=== PATIENT | female | born 1935 | race Caucasian/White ===

== ENCOUNTER 2017-02-06 01:03 | Inpatient (IN) ==
--- NOTE | 2017-02-06 01:51 | Emergency Department Note ---
Arrival - Arrival Chief Complaint: Abdominal / Flank Pain Stated Complaint: Abd pain ED Nursing Triage Note: C/C Transfer from [facility] ER for abd pain Dx Gallstones Mode of Arrival: Stretcher Time Seen by Provider: 02/06/17 01:40 - History of Present Illness HPI Narrative: Patient had thorough workup at [facility] by Dr. Bond. She had multiple vague complaints of therapeutic bleeding complaints were headache, general demise, abdominal pain, and leg cramping all night long. The patient now has been transferred for further evaluation of findings on CT which were in addition to elevated transaminases and bilirubin suggesting choledocholithiasis. Allergies/Adverse Reactions: Allergies Allergy/AdvReac Type Severity Reaction Status Date / Time No Known Allergies Allergy Unverified 02/06/17 01:18 Review of System - Review of System 12 point system: reviewed and no additional remarkable complaints except as stated Medical,Surgical,& Family Hx - Medical History Cardio: History of: CHF, CAD, Hypertension Psychological: History of: Depression Neurology: History of: TIA Endocrine: History of: Diabetes Mellitus (IDDM), Dyslipidemia Renal: History of: Renal Failure Gastrointestinal: History of: GERD - Social History Smoking Status: Never smoker Frequency of Alcohol Use: None Type of Drug Use: None Exam Physical Examination: General: Patient is well-developed and well-nourished with no acute distress noted. She does not appear to have jaundice at this time. HEENT: The extraocular muscles are intact. Oropharynx is moist. There is no erythema or exudate. The tympanic membranes are shiny bilaterally. Neck: There is no adenopathy. Full range of motion is noted without pain. The trachea is midline. No JVD is present. Lungs: There is normal excursion of the chest with the lungs sounding clear bilaterally. No subcostal retractions are present. There is no point tenderness present. Heart: The heart has a regular rate and rhythm with no gallops or murmurs. Abdomen: The abdomen is nontender and nondistended with no rebound, guarding, or masses. Bowel sounds are normal. Back: The back demonstrates a normal appearance with no evidence of trauma. Genitourinary: Not examined. Extremities: The extremities demonstrate no clubbing, cyanosis, or edema. The visualized range of motion is normal. They appear atraumatic. Neuro: Cranial nerves II through XII are checked and intact. There is no focal motor or sensory deficit seen in the extremities. Skin: Skin is warm and dry with no evidence of rash. Vital Signs: Vital Signs Temperature 97.9 F 02/06/17 01:03 Pulse Rate 74 02/06/17 01:03 Respiratory Rate 20 02/06/17 01:03 Blood Pressure 138/49 02/06/17 01:03 O2 Sat by Pulse Oximetry 95 02/06/17 01:03 Course - Consultations Consultation #1: The hospitalist will evaluate and admit the patient. Time: 01:51 Disposition Clinical Impression: Elevated transaminase level, Bilirubinemia, Gallstones Case discussed with: patient, patient's family Disposition: Still a Patient Condition: Stable Time of Disposition: 01:51
[2017-02-06] MEDS ORDERED: GLUCAGON 1 MG VIAL IM PRN (02:48)
[2017-02-06] MEDS ORDERED: DEXTROSE 50% 25 GM/50 ML VIAL IV PRN (02:48)
--- NOTE | 2017-02-06 02:57 | Hospitalist History & Physical ---
Assessment and Plan (1) Dilated gallbladder Status: Acute Assessment and plan: We will do a HIDA scan to evaluate for possibility of bladder outlet obstruction versus dyskinesia. Patient has been consulted to gastroenterology for further evaluation and management. Current Visit: Yes (2) Elevated transaminase level Status: Acute Assessment and plan: This could be hepatocyte injury secondary to Tylenol which is been mentioned or even Toradol. She is also to be taking some nonsteroidal anti-inflammatory drugs that could do it. But in the face of dilated gallbladder choledocholithiasis has to be considered. She was symptomatic with nausea and vomiting and intolerance to food smells. Gastroenterology will be on the case Current Visit: Yes (3) Gallstones Status: Acute Assessment and plan: The gallbladder is dilated there is no sign of this by radiographs that there is inflammation of the gallbladder. She denies having had fevers though the daughter seemed to suggest that this was so. We will repeat his CBC this morning; if white count is elevated gallbladder information has to be considered. Surgical consult is withheld at this point. Current Visit: Yes (4) Diabetes mellitus type 2 with complications Status: Acute Assessment and plan: General control is unknown to me at this point. Patient does seem to have neuropathy therefore expect that that is control is been a problem in the past. She has been put on a controlled carbohydrate diet will put her on a sliding scale intermediates level check blood sugars q. before meals and at bedtime check hemoglobin A1c. Oral intake is been suspect of late therefore she was sent for hypoglycemia.Also check lipid panel Current Visit: Yes History of Present Illness Chief complaint: [facility] for cholelithiasis and dilated gallbladder History of present illness: Ms. Lopez is a 82 year old female who was sent to this hospital by [facility] because for history of nausea vomiting and not being able to eat for a few days. Acknowledges that smell of food was bothering her. But attention [employer] shop with a did a workup today with a CT scan shows a dilated gallbladder with some cholelithiasis. She also has significant transaminasemia with the SGOT greater than SGPT and the elevated alkaline phosphatase. Her bilirubin is only modestly elevated. She does not have any jaundice. She acknowledges taking a lot of Tylenol as of late because the physician who treats did not give her tramadol but she is known to have used tramadol for long time to. According to the daughter in the room she has been taking Tylenol arthritis in the morning and in the evening to what it time foot but the duration that she calls will be not the one that would say it could cause hepatitis. She may have been using some Tylenol products before that however. And that is for a long duration. Consent at this point the patient may have an obstructive process in the common bile duct and for this reason will be admitted to the hospital and will be consulted to gastroenterology. She looks to be not in any distress at the time of my assessment in the emergency room she does not even have tenderness in the right upper quadrant but she does have a rotund abdomen and a history of nausea vomiting with the finding by radiograph is concerning. Allergies Allergy/AdvReac Type Severity Reaction Status Date / Time No Known Allergies Allergy Unverified 02/06/17 01:18 Medical,Surgical,& Family Hx - Medical History Cardio: History of: CHF, CAD, Hypertension Psychological: History of: Depression Neurology: History of: TIA Endocrine: History of: Diabetes Mellitus (IDDM), Dyslipidemia Renal: History of: Renal Failure Gastrointestinal: History of: GERD - Social History Smoking Status: Never smoker Frequency of Alcohol Use: None Type of Drug Use: None - Constitutional Constitutional: Present: as per HPI - EENT Eyes: Present: as per HPI Nose, mouth and throat: Present: as per HPI - Respiratory Respiratory: Present: as per HPI - Gastrointestinal Gastrointestinal: Present: as per HPI, other (Patient has elevated liver enzymes rotund abdomen abdomen and she is has nausea and vomiting) - Genitourinary Genitourinary: Present: as per HPI - Musculoskeletal Musculoskeletal: Present: as per HPI - Neurological Neurological: Present: as per HPI - Psychiatric Psychiatric: Present: as per HPI - Endocrine Endocrine: Present: as per HPI, other (History of diabetes with the uncontrolled pain in the legs suspicious for diabetic neuropathy) - Hematologic/Lymphatic Hematologic/Lymphatic: Present: as per HPI Exam - Constitutional Vitals: Period Temp Pulse Resp BP Sys/Blood Pulse Ox Last 24 Hr 97.9 F-97.9 F 71-74 18-20 138-138/49-49 95 General appearance: over weight - Head Head exam: Present: normocephalic, atraumatic - Eye Eye exam: Present: EOMI, other (Anicteric sclera no conjunctival petechiae) Pupils: Present: UDAY - ENT ENT exam: Present: normal exam, normal oropharynx - Neck Neck exam: Present: other (Supple neck no adenopathy midline trachea) - Respiratory Respiratory exam: Present: clear to auscultation bilaterally, other (No rales no wheezing) - Cardiovascular Cardiovascular exam: Present: irregular rhythm, other (No murmurs or gallops) - GI/Abdominal GI/Abdominal exam: Present: normal bowel sounds, soft, other (Nontender no guarding negative Adams sign) - Extremities Exam Extremities exam: Present: full ROM - Back Exam Back exam: Present: normal inspection - Neurological Exam Neurological exam: Present: alert, oriented X3, CN II-XII intact - Psychiatric Psychiatric exam: Present: normal affect, normal mood - Skin Skin exam: Present: normal color, warm, dry Results - Labs Lab Results: I have reviewed the past 24 hour labs (Labs were done at [facility] and will be incorporated part of the chart. Plan to repeat chemistry this morning)
[2017-02-06] MEDS: HEPARIN 5,000 UNIT/1 ML VIAL SUBCUT SCH ×2 (04:24→22:01)
[2017-02-06 05:01] LABS: Basophils % 0.3 % (0.0-0.8); Eosinophils % 0.3 % (0.00-10.9); Hematocrit 35.3 VOL% (35.7-47.0); Immature Granulocytes % 0.7 %; Immature Granulocytes Absolute 0.08 #; Lymphocytes # 0.8 10*3/uL (1.4-4.0); Lymphocytes % 6.9 % (21.3-54.2); Mean Corpuscular Hemoglobin 31 PG (27-34); Mean Corpuscular Volume 89.6 FL (87-102); Mean Platelet Volume 9.9 FL (9.6-12.0); Monocytes # 0.8 10*3/uL (0.11-0.8); Monocytes % 7.3 % (1.7-12.7); Neutrophils # 9.7 10*3/uL (1.4-7.4); Neutrophils % 84.5 % (38.7-73.9); Platelet Count 314 T/CUMM (130-400); Red Blood Count 3.94 MC/CUMM (3.8-5.5); White Blood Count 11.5 T/CUMM (4-12)
[2017-02-06 05:28] LABS: Risk Ratio 1.79; VLDL CHOLESTEROL 8.8 MG/DL
[2017-02-06 05:41] LABS: Albumin 3.1 G/DL (3.4-5.0); Bilirubin,Total 2.4 MG/DL (0.2-1.0); Calcium 8.5 MG/DL (8.5-10.1); Magnesium 1.5 MG/DL (1.8-2.4); Osmolality,Calculated 276.9 MOS/KG (273-304); Potassium 4.4 MMOL/L (3.5-5.1); Total Protein 6.7 G/DL (6.4-8.3)
--- NOTE | 2017-02-06 09:36 | Nuclear Medicine Report ---
Nuclear medicine hepatobiliary scan Indication: Abdominal pain Findings: The patient was injected with 5.0 mCi of 90 9M technetium Choletec intravenously. There is prompt hepatic uptake and excretion into the biliary system. There does appear to be slightly more increased activity in the liver in the area of the gallbladder. Gallbladder did not fill in 2 hours. Impression: Nonvisualization of gallbladder. Slight increased uptake in the hepatic parenchyma adjacent to gallbladder, can be seen with cholecystitis. PROCEDURE INTERPRETED AT [facility] DEPARTMENT OF RADIOLOGY Final Report Signed by: Dr. Ta Zhu
[2017-02-06] MEDS: GABAPENTIN 300 MG CAPSULE PO SCH ×3 (09:38→22:00)
[2017-02-06] MEDS ORDERED: ONDANSETRON 4 MG/2 ML VIAL IV PRN (10:19)
[2017-02-06] MEDS: MORPHINE 2 MG/1 ML SYRINGE IV PRN ×2 (10:23→18:33)
[2017-02-06] MEDS: SODIUM CHLORIDE 0.9% 1,000 ML IV SCH (10:24)
[2017-02-06 10:34] LABS: Basophils % 0.3 % (0.0-0.8); Eosinophils % 0.2 % (0.00-10.9); Hematocrit 34.3 VOL% (35.7-47.0); Immature Granulocytes % 0.4 %; Immature Granulocytes Absolute 0.05 #; Lymphocytes # 1.1 10*3/uL (1.4-4.0); Lymphocytes % 9.4 % (21.3-54.2); Mean Corpuscular Hemoglobin 31 PG (27-34); Mean Corpuscular Volume 87.9 FL (87-102); Mean Platelet Volume 9.7 FL (9.6-12.0); Monocytes % 8.2 % (1.7-12.7); Neutrophils # 9.9 10*3/uL (1.4-7.4); Neutrophils % 81.5 % (38.7-73.9); Platelet Count 287 T/CUMM (130-400); Red Cell Distribution Width 13.2 % (9.3-17.3); White Blood Count 12.2 T/CUMM (4-12)
[2017-02-06] MEDS ORDERED: MAGNESIUM SULF RIDER 2 GM in PREMIX 1 EACH IV ONE (11:00)
[2017-02-06 11:18] LABS: Albumin 3.1 G/DL (3.4-5.0); Bilirubin,Total 2.3 MG/DL (0.2-1.0); Calcium 8.6 MG/DL (8.5-10.1); Osmolality,Calculated 277.1 MOS/KG (273-304); Potassium 4.1 MMOL/L (3.5-5.1); Total Protein 6.4 G/DL (6.4-8.3)
--- NOTE | 2017-02-06 11:20 | Gastrointestinal Consult Note ---
<Deysi Weller - Last Filed: 02/06/17 12:09> Assessment and Plan (1) Abdominal pain Status: Acute Assessment and plan: 02/06-sudden onset abdominal pain associated with nausea and vomiting. CT and HIDA scan results noted. Elevated liver enzymes. Plan for ERCP tomorrow to further evaluate. Plan an addendum to follow by Dr. Mills per Current Visit: Yes History of Present Illness Chief complaint: Abdominal pain History of present illness: Ms. Lopez is a 82 year old female who was admitted for onset of abdominal pain , nausea vomiting. Patient is a fairly poor historian. Family is at bedside and assist some in her history. Information also obtained from chart review. Patient is reported to have had a sudden onset over the weekend of upper abdominal pain with nausea vomiting. Patient initially felt like something was hung in her throat when she began vomiting however this continued throughout the weekend. Patient states the pain is in her upper abdomen and radiated across and into her back. She denies pain like this in the past. She denies a history of gallbladder disease. Denies a family history of gallbladder disease as well. Patient presented to [facility] where she was found to have elevated LFTs. She denies a prior history of elevated liver enzymes are knowledge of liver disease in the past. She did have a recent fall with a fracture to her right foot reported to be approximately a week ago. She was found on noncontrasted CT and [facility] to have a distended gallbladder with cholelithiasis. Upon admission to our facility she had a HIDA scan which showed a nonvisualized gallbladder. She denies fever, chills, or weight loss. Denies any coffee-ground emesis or hematemesis with vomiting. She states she does take Tylenol but only does this twice a day and has started this here recently since her fall. Home Medications Medication Instructions Recorded Confirmed Type Aspirin 81 mg PO DAILY 02/06/17 02/06/17 History Bumetanide 1 mg PO DAILY 02/06/17 02/06/17 History Citalopram [CeleXA] 20 mg PO DAILY 02/06/17 02/06/17 History Furosemide [Lasix] 20 mg PO DAILY 02/06/17 02/06/17 History Gabapentin 300 mg PO TID 02/06/17 02/06/17 History Insulin NPH Hum/Reg Insulin Hm 16 units SUBCUT DIRECTED 02/06/17 02/06/17 History [NovoLIN 70/30] Levothyroxine Tab [Synthroid Tab] 50 mcg PO DAILY 02/06/17 02/06/17 History Lisinopril 40 mg PO DAILY 02/06/17 02/06/17 History Multivit,Calc,Mins/Iron/Folic 1 tablet PO DAILY 02/06/17 02/06/17 History [Women's Daily Formula Caplet] Omeprazole 40 mg PO DAILY 02/06/17 02/06/17 History Simvastatin 80 mg PO BEDTIME 02/06/17 02/06/17 History metOLazone [Zaroxolyn] 2.5 mg PO DIRECTED 02/06/17 02/06/17 History Allergies Allergy/AdvReac Type Severity Reaction Status Date / Time No Known Allergies Allergy Unverified 02/06/17 01:18 Medical,Surgical,& Family Hx - Medical History Cardio: History of: CHF, CAD, Hypertension Psychological: History of: Depression Neurology: History of: TIA Endocrine: History of: Diabetes Mellitus (IDDM), Dyslipidemia Respiratory: History of: Pneumonia Renal: History of: Renal Failure Gastrointestinal: History of: GERD Hematology: History of: Anemia - Surgical History Thoracic Surgeries: Patient denies;: Organ Transplant HEENT Surgeries: Patient denies: Tonsilectomy & Adenoidectomy Abdominal Surgeries: Surgical HX of: Colonoscopy, EGD Orthopedic Surgeries: Surgical HX of;: Orthopedic Surgery (left ankle screws right foot in a cast from toes to knee) - Family History Family History: Reports;: Family Cancer, Family Diabetes, Family Heart Disease, Family Hypertension, Family Stroke - Social History Smoking Status: Never smoker Frequency of Alcohol Use: None Type of Drug Use: None 12 point system: reviewed and no additional remarkable complaints except as stated - Constitutional Constitutional: Present: as per HPI - EENT Eyes: Present: as per HPI Ears: Present: as per HPI Nose, mouth and throat: Present: as per HPI, dysphagia - Cardiovascular Cardiovascular: Present: as per HPI - Respiratory Respiratory: Present: as per HPI - Gastrointestinal Gastrointestinal: Present: as per HPI, abdominal pain, dysphagia, nausea, vomiting - Genitourinary Genitourinary: Present: as per HPI - Musculoskeletal Musculoskeletal: Present: as per HPI - Neurological Neurological: Present: as per HPI - Psychiatric Psychiatric: Present: as per HPI - Endocrine Endocrine: Present: as per HPI - Hematologic/Lymphatic Hematologic/Lymphatic: Present: as per HPI Exam - Constitutional Vitals: Period Temp Pulse Resp BP Sys/Blood Pulse Ox Last 24 Hr 99.1 F-99.6 F 82-94 18-20 107-148/50-75 93-100 General appearance: normal weight, no acute distress - Head Head exam: Present: normal inspection, normocephalic - Eye Eye exam: Present: other (lids and conjunctiva unremarkable). Absent: scleral icterus - ENT ENT exam: Present: normal exam, normal oropharynx - Neck Neck exam: Present: normal inspection - Respiratory Respiratory exam: Present: clear to auscultation bilaterally. Absent: rales, rhonchi, wheezes - Cardiovascular Cardiovascular exam: Present: regular rate and rhythm. Absent: diastolic murmur , JVD, systolic murmur - GI/Abdominal GI/Abdominal exam: Present: normal bowel sounds, tenderness, soft. Absent: ascites, distended, mass, organomegaly - Extremities Exam Extremities exam: Present: normal inspection, full ROM - Back Exam Back exam: Present: normal inspection - Neurological Exam Neurological exam: Present: alert, oriented X3 - Psychiatric Psychiatric exam: Present: normal affect, normal mood - Skin Skin exam: Present: normal color, warm, dry Results - Labs CBC & BMP: 02/06/17 10:29 02/06/17 10:29 Lab Results: I have reviewed the past 24 hour labs Quality Measures - Stroke Symptom Onset Unknown: No <Ventura Mills - Last Filed: 02/06/17 18:45> History of Present Illness History of present illness: Ms. Lopez is a 82 year old female Exam - Constitutional Vitals: Period Temp Pulse Resp BP Sys/Blood Pulse Ox Last 24 Hr 98.9 F-100.5 F 82-102 17-20 107-148/50-75 92-100 Results - Labs CBC & BMP: 02/06/17 10:29 02/06/17 10:29
[2017-02-06] MEDS: INSULIN LISPRO 100 UNIT/ML SUBCUT SCH ×3 (11:27→22:05)
--- NOTE | 2017-02-06 12:14 | General Surgery Consult Note ---
Assessment and Plan (1) Cholelithiasis Status: Acute Assessment and plan: Patient with suspected acute cholecystitis associated with cholelithiasis. Gastroenterology consultation is pending as well as further medical and cardiac evaluation of stability. Patient did have evidence of possible urinary tract infection at previous facility and repeat UA has been ordered. Zosyn has been initiated. Recommend liquid diet in the interim to prevent further complication which was discussed with the family. Final surgical decision pending current cardiac evaluation as well as gastroenterology findings. We will follow along with you. Current Visit: Yes Qualifiers: Cholelithiasis location: gallbladder Cholecystitis presence: with cholecystitis Cholecystitis acuity: acute History of Present Illness Chief complaint: N/V/abd pain History of present illness: Ms. Lopez is a 82 year old female with past medical history of CAD, CHF, CKD severity known, and other comorbidities transferred to [facility] from [facility] for choledocholithiasis and suspected acute cholecystitis. Transfer chart was reviewed and summarized below. The patient relies on her family primarily for history with whom she resides. They describe the patient has struggled with constipation and indigestion for several months at this point, although they find it difficult providing details. She has been taking milk of magnesia [id number] as well as Tums receiving partial relief from the symptoms. Regardless, yesterday evening she had an acute episode of right upper quadrant abdominal pain, nausea and vomiting for which she sought treatment at the [facility] emergency department. There the findings on CT scan for dilated gallbladder with cholelithiasis were identified and the patient was transferred for further evaluation and treatment. Patient had not previously noted fever, chills, myalgias, arthralgias or night sweats. She had not noted changes in her weight or appetite. The patient has a history of CHF and CAD for which she will continue with further evaluation prior to the operative final decisions. Transfer chart reviewed Patient received 3.375 g of Zosyn, morphine and Zofran in the emergency department. Laboratory review: CBC WBC 10.3 hemoglobin 12.9 hematocrit 36.6 platelets 336 neutrophils 83% Urinalysis trace proteinuria, trace leukocytes, positive hematuria and bacteria INR 0.96 BMP with blood glucose 116 BUN 39 creatinine 2.0 sodium 130 Hepatic function panel with bilirubin 2.2 alkaline phosphatase 395, ALT 605, AST [address] scan abdomen and pelvis without IV contrast report reviewed: This changes noted of bilateral lungs with atelectatic changes about both pulmonary bases. Distended gallbladder with gallstones present. No ductal dilatation identified. Incidental finding of umbilical hernia noted. Home Medications Medication Instructions Recorded Confirmed Type Aspirin 81 mg PO DAILY 02/06/17 02/06/17 History Bumetanide 1 mg PO DAILY 02/06/17 02/06/17 History Citalopram [CeleXA] 20 mg PO DAILY 02/06/17 02/06/17 History Furosemide [Lasix] 20 mg PO DAILY 02/06/17 02/06/17 History Gabapentin 300 mg PO TID 02/06/17 02/06/17 History Insulin NPH Hum/Reg Insulin Hm 16 units SUBCUT DIRECTED 02/06/17 02/06/17 History [NovoLIN 70/30] Levothyroxine Tab [Synthroid Tab] 50 mcg PO DAILY 02/06/17 02/06/17 History Lisinopril 40 mg PO DAILY 02/06/17 02/06/17 History Multivit,Calc,Mins/Iron/Folic 1 tablet PO DAILY 02/06/17 02/06/17 History [Women's Daily Formula Caplet] Omeprazole 40 mg PO DAILY 02/06/17 02/06/17 History Simvastatin 80 mg PO BEDTIME 02/06/17 02/06/17 History metOLazone [Zaroxolyn] 2.5 mg PO DIRECTED 02/06/17 02/06/17 History Allergies Allergy/AdvReac Type Severity Reaction Status Date / Time No Known Allergies Allergy Unverified 02/06/17 01:18 Medical,Surgical,& Family Hx - Medical History Cardio: History of: CHF, CAD, Hypertension Psychological: History of: Depression Neurology: History of: TIA Endocrine: History of: Diabetes Mellitus (IDDM), Dyslipidemia Respiratory: History of: Pneumonia Renal: History of: Renal Failure Gastrointestinal: History of: GERD Hematology: History of: Anemia - Surgical History Thoracic Surgeries: Patient denies;: Organ Transplant HEENT Surgeries: Patient denies: Tonsilectomy & Adenoidectomy Abdominal Surgeries: Surgical HX of: Colonoscopy, EGD Orthopedic Surgeries: Surgical HX of;: Orthopedic Surgery (left ankle screws right foot in a cast from toes to knee) - Family History Family History: Reports;: Family Cancer, Family Diabetes, Family Heart Disease, Family Hypertension, Family Stroke - Social History Smoking Status: Never smoker Frequency of Alcohol Use: None Type of Drug Use: None - Constitutional Constitutional: Absent: anorexia, chills, fatigue, fever(s), night sweats, weight gain, weight loss - EENT Nose, mouth and throat: Absent: dysphagia - Cardiovascular Cardiovascular: Absent: chest pain at rest, chest pain with activity, dyspnea, dyspnea on exertion, orthopnea - Respiratory Respiratory: Absent: cough, dyspnea on exertion, wheezing - Gastrointestinal Gastrointestinal: Present: as per HPI Hematologic/Lymphatic: Absent: easy bleeding, easy bruising Exam - Constitutional Vitals: Period Temp Pulse Resp BP Sys/Blood Pulse Ox Last 24 Hr 99.1 F-100.5 F 82-102 18-20 107-148/50-75 93-100 General appearance: no acute distress, over weight - Head Head exam: Present: normocephalic, atraumatic - Eye Eye exam: Absent: conjunctival injection, scleral icterus - Neck Neck exam: Present: trachea midline - Respiratory Respiratory exam: Present: clear to auscultation bilaterally - Cardiovascular Cardiovascular exam: Present: RRR - GI/Abdominal GI/Abdominal exam: Present: normal bowel sounds, tenderness (RUQ tenderness with (+)Adams), soft. Absent: distended, guarding, rebound - Extremities Exam Extremities exam: Present: other (short leg splint to RLE). Absent: calf tenderness - Neurological Exam Neurological exam: Present: alert, oriented X3 - Skin Skin exam: Present: normal color, warm Quality Measures - Stroke Symptom Onset Unknown: No Results - Labs CBC & BMP: 02/06/17 10:29 02/06/17 10:29 Labs: See chart review summary HIDA scan - no filling of GB after 2 hrs
[2017-02-06 12:18] LABS: Hepatitis A Ab IgM Quant 0.12 Index; Hepatitis A Ab IgM Result Negative (Negative); Hepatitis B Core IgM Quant 0.16 Index; Hepatitis B Core IgM Result Negative (Negative); Hepatitis B Surface Ag Quant < 0.10 Index; Hepatitis B Surface Ag Result Negative (Negative); Hepatitis C Virus Ab Quant 0.09 Index; Hepatitis C Virus Ab Result Negative (Negative)
--- NOTE | 2017-02-06 12:28 | XRay Report ---
XR foot 2V BI Indication: Questionable fracture. Comparison: None. Technique: AP and lateral images of the left and right foot were performed. Findings: The right foot is obscured by bandage material. No grossly displaced fractures of the right foot are demonstrated. The left foot demonstrates fracture involving the mid left fifth metatarsal with callus formation and mild displacement. Findings suggest healing or subacute fracture. Impression: 1. Findings as detailed. 02/06/2017 12:22 PM PROCEDURE INTERPRETED AT [facility] DEPARTMENT OF RADIOLOGY Final Report Signed by: Dr. Mike Wise
[2017-02-06] MEDS: PIPERACILLIN/TAZOBACTAM 3,375 MG in SODIUM CHLORIDE 0.9% 100 ML IV SCH ×2 (13:00→22:01)
--- NOTE | 2017-02-06 13:48 | EKG Report ---
Stationary ECG Study [facility] Test Date: 02/06/2017 1:47:28 PM Pat Name: NIC RODRIGUEZ Department: Room: 235 Gender: F Senior Internet Sales Consultant: LILLIAM : 1935 Requested by: Danyelle Bradford Order Number: [id number] Reading MD: MILAGROS BARONE Intervals [employer] Rate: 86 P: 999 MN: 0 QRS: -9 QRSD: 89 T: 17 QT: 368 QTc: 412 Interpretive Statements Ectopic atrial rhythm with PACs versus wandering atrial pacemaker and 86 bpm LOW QRS VOLTAGE IN PRECORDIAL LEADS POSSIBLE O[place]TER[place] Electronically Signed On 02-09-17 16:55:56 CDT by MILAGROS BARONE [email or web address]
[2017-02-06 16:05] LABS: Apearance,Urine Slightly Hazy (Clear); Bilirubin,Urine Negative (Negative); Blood, Urine Small mg/dL (Negative); Glucose,Urine (UA) Negative (Negative); Ketones,Urine Negative (Negative); Nitrite,Urine Negative (Negative); Protein,Urine 30 MG/DL; RBC,Urine 9 /HPF (0-4); Squamous Epithelial Cell,Urine Occasional /HPF (0-10); Urine Color Amber (Yellow); Urine Specific Gravity 1.014 (1.001-1.035); WBC,Urine 33 /HPF (0-6)
--- NOTE | 2017-02-06 18:38 | Orthopedic Consult Note ---
History of Present Illness Chief complaint: Left foot fracture History of present illness: Ms. Lopez is a 82 year old female who has a history of recurrent falls. She is currently been admitted for acute cholelithiasis with associated hepatitis. She is very lethargic. History could not be obtained from her. Her son is in the room and he is also a very poor historian. Patient apparently fell a week ago and was placed in a splint at [facility]. However radiographs are suggested that she has a contralateral left small metatarsal fracture. She has a history of ORIF of her left ankle in [facility] 7-9 years ago. Past medical surgical history, medicines and allergies were reviewed from the chart. Review of systems were unable to be obtained from the patient. The patient is very lethargic. She is arousable but does not follow any commands or simple answers. Bilateral lower extremity shows there is no obvious swelling. She has an ecchymosis involving her right great toe. No obvious deformity. She moves her feet and ankles to stimulation. Both feet demonstrate nonspecific tenderness. Capillary refill is less than 2 seconds. Radiographs from [facility] and radiographs from [facility] were reviewed and compared. The patient has evidence of a previous bimalleolar ankle open reduction fixation on the left. She has what appears to be a healing left small metatarsal fracture. Radiographs 3 views right foot demonstrate no obvious fracture. Impression: Left healing small metatarsal fracture. Left bimalleolar ankle fracture status post ORIF Plan: While I see no obvious new fracture involving the right foot, an occult fracture cannot be ruled out. At this time, I would recommend a postop shoe to be used on the left when ambulating. I would also allow her to be mobilized weightbearing as tolerated on her bilateral extremities when she is able to mobilize. Home Medications Medication Instructions Recorded Confirmed Type Aspirin 81 mg PO DAILY 02/06/17 02/06/17 History Bumetanide 1 mg PO DAILY 02/06/17 02/06/17 History Citalopram [CeleXA] 20 mg PO DAILY 02/06/17 02/06/17 History Furosemide [Lasix] 20 mg PO DAILY 02/06/17 02/06/17 History Gabapentin 300 mg PO TID 02/06/17 02/06/17 History Insulin NPH Hum/Reg Insulin Hm 16 units SUBCUT DIRECTED 02/06/17 02/06/17 History [NovoLIN 70/30] Levothyroxine Tab [Synthroid Tab] 50 mcg PO DAILY 02/06/17 02/06/17 History Lisinopril 40 mg PO DAILY 02/06/17 02/06/17 History Multivit,Calc,Mins/Iron/Folic 1 tablet PO DAILY 02/06/17 02/06/17 History [Women's Daily Formula Caplet] Omeprazole 40 mg PO DAILY 02/06/17 02/06/17 History Simvastatin 80 mg PO BEDTIME 02/06/17 02/06/17 History metOLazone [Zaroxolyn] 2.5 mg PO DIRECTED 02/06/17 02/06/17 History Allergies Allergy/AdvReac Type Severity Reaction Status Date / Time No Known Allergies Allergy Unverified 02/06/17 01:18 Medical,Surgical,& Family Hx - Medical History Cardio: History of: CHF, CAD, Hypertension Psychological: History of: Depression Neurology: History of: TIA Endocrine: History of: Diabetes Mellitus (IDDM), Dyslipidemia Respiratory: History of: Pneumonia Renal: History of: Renal Failure Gastrointestinal: History of: GERD Hematology: History of: Anemia - Surgical History Thoracic Surgeries: Patient denies;: Organ Transplant HEENT Surgeries: Patient denies: Tonsilectomy & Adenoidectomy Abdominal Surgeries: Surgical HX of: Colonoscopy, EGD Orthopedic Surgeries: Surgical HX of;: Orthopedic Surgery (left ankle screws right foot in a cast from toes to knee) - Family History Family History: Reports;: Family Cancer, Family Diabetes, Family Heart Disease, Family Hypertension, Family Stroke - Social History Smoking Status: Never smoker Frequency of Alcohol Use: None Type of Drug Use: None Exam - Constitutional Vitals: Period Temp Pulse Resp BP Sys/Blood Pulse Ox Last 24 Hr 98.9 F-100.5 F 82-102 17-20 107-148/50-75 92-100 Results - Labs CBC & BMP: 02/06/17 10:29 02/06/17 10:29
--- NOTE | 2017-02-06 20:02 | ECHO Report ---
Lynn Lopez Exam Date: 02/06/2017 13:39 Referring Physician: Technologist: Stephanie Mathis Age: 82 Ht (in): 63 Wt (lb): 230 Gender: F Exam Location: [facility] Echo Indications: CHF, Abd. pain BP: / HR: 95 Rhythm: Sinus Technical Quality: Technically difficult study IMPRESSIONS Technically difficult study 1-2+ left atrial enlargement 1-2+ concentric LVH Normal LV systolic function with ejection fraction estimate is 60% Aortic sclerosis without stenosis Mitral annular calcification 1+ tricuspid regurgitation with RVSP 13 mmHg plus RAP MEASUREMENTS (Male / Female) Normal Values 2D ECHO LV Diastolic Diameter PLAX 2.6 cm 4.2 - 5.9 / 3.9 - 5.3 cm LV Systolic Diameter PLAX 2.1 cm LV Fractional Shortening PLAX 21.1 % IVS Diastolic Thickness 2.2 cm 0.6 - 1.0 / 0.6 - 0.9 cm LVPW Diastolic Thickness 1.6 cm 0.6 - 1.0 / 0.6 - 0.9 cm RV Internal Dim ED PLAX 3.0 cm Aortic Root Diameter 2.9 cm LA Systolic Diameter LX 4.3 cm 3.0 - 4.0 / 2.7 - 3.8 cm DOPPLER TR Peak Velocity 183.0 cm/s TR Peak Gradient 13.4 mmHg FINDINGS Left Ventricle Severely increased septal wall thickness. Moderately increased posterior wall thickness. Moderate concentric left ventricular hypertrophy with diastolic dysfunction. Left ventricular ejection fraction is estimated at 55-60 %. Right Ventricle Normal right ventricular size. Right Atrium Normal right atrial size. Left Atrium Moderately increased left atrial diameter. Mitral Valve Mild mitral valve sclerosis. Moderate mitral valve regurgitation. Aortic Valve Mild - moderate aortic valve sclerosis. Tricuspid Valve Morphologically normal tricuspid valve. Mild tricuspid valve regurgitation. Tricuspid regurgitation velocities suggest a PAP of 13.4 mmHg + RAP. Pulmonic Valve Morphologically normal pulmonic valve. Pericardium No pericardial effusion. Aorta Normal size aortic root and proximal ascending aorta. Brando Ramos (Electronically Signed) Final Date: 06 February 2017 20:01
[2017-02-06] MEDS: SIMVASTATIN 80 MG TABLET PO SCH (22:00)
[2017-02-07] MEDS: MORPHINE 2 MG/1 ML SYRINGE IV PRN ×3 (04:04→23:43)
[2017-02-07] MEDS: PIPERACILLIN/TAZOBACTAM 3,375 MG in SODIUM CHLORIDE 0.9% 100 ML IV SCH ×3 (05:22→21:26)
[2017-02-07] MEDS: SODIUM CHLORIDE 0.9% 1,000 ML IV SCH ×4 (07:00→17:13)
[2017-02-07 07:24] LABS: Basophils # 0.1 10*3/uL (0.0-0.2); Basophils % 0.9 % (0.0-0.8); Eosinophils # 0.4 10*3/uL (0.0-0.87); Eosinophils % 5.1 % (0.00-10.9); Hematocrit 33.6 VOL% (35.7-47.0); Hemoglobin 11.4 GM/DL (12.0-16.0); Immature Granulocytes % 0.5 %; Immature Granulocytes Absolute 0.04 #; Lymphocytes # 1.3 10*3/uL (1.4-4.0); Lymphocytes % 16.8 % (21.3-54.2); Mean Corpuscular HGB Conc 33.9 GM/DL (32-36); Mean Corpuscular Hemoglobin 31 PG (27-34); Mean Corpuscular Volume 90.1 FL (87-102); Mean Platelet Volume 10.1 FL (9.6-12.0); Monocytes # 0.9 10*3/uL (0.11-0.8); Monocytes % 12.3 % (1.7-12.7); Neutrophils # 4.9 10*3/uL (1.4-7.4); Neutrophils % 64.4 % (38.7-73.9); Platelet Count 277 T/CUMM (130-400); Red Blood Count 3.73 MC/CUMM (3.8-5.5); Red Cell Distribution Width 13.3 % (9.3-17.3); White Blood Count 7.7 T/CUMM (4-12)
--- NOTE | 2017-02-07 07:57 | Physician Query Form ---
CLICK EDIT DOCUMENT TO SELECT QUERY ANSWER --> OK --> SIGN Aury Wise RN, CCDS Certified Clinical Light Technician W) [phone] (f) [phone] [email or web address] PROVIDERS: Make your selection(s) from the choices in EACH section by typing an "x" and enter comments in the comment section. Please use your independent medical judgment in providing your response. This request does not imply that any particular answer is desired or expected. CLINICAL INDICATORS: (Providers should not edit this section) The below diagnosis was documented in the record, but is not consistently noted in subsequent documentation. "Patient did have evidence of possible urinary tract infection at previous facility and repeat UA has been ordered. Zosyn has been initiated" ---- "Urine WBC 33#"----Urine Leukocytes Moderate H---(Patient is on Piperacillin) Diagnosis: UTI Please clarify the following: ( ) The above diagnosis was monitored, evaluated, and/or treated and is a confirmed diagnosis ( ) The above diagnosis was ruled out (x ) The above diagnosis is still a likely, suspected, probable diagnosis ( ) Other, please specify: ( ) Clinically unable to determine COMMENTS:urine culture pending, negative so far Use of terms such as suspected, likely, or probable (associated with a specific diagnosis that is being evaluated, monitored, or treated as if it exists) are acceptable and can be restated in the discharge summary if not ruled out. MTDD
[2017-02-07 08:00] LABS: Albumin 2.8 G/DL (3.4-5.0); Bilirubin,Total 2.5 MG/DL (0.2-1.0); Calcium 8.2 MG/DL (8.5-10.1); Osmolality,Calculated 278.1 MOS/KG (273-304); Potassium 4.3 MMOL/L (3.5-5.1)
[2017-02-07] MEDS: INSULIN LISPRO 100 UNIT/ML SUBCUT SCH ×4 (08:39→21:26)
[2017-02-07] MEDS: PANTOPRAZOLE 40 MG VIAL IV SCH (08:59)
[2017-02-07] MEDS ORDERED: ENOXAPARIN 100 MG/ML SYRINGE SUBCUT SCH (09:00)
[2017-02-07] MEDS ORDERED: CITALOPRAM 20 MG TABLET PO SCH (09:00)
--- NOTE | 2017-02-07 10:35 | General Surgery Progress Note ---
Assessment and Plan (1) Abdominal pain Status: Acute Assessment and plan: The patient is scheduled for ERCP today. Her echocardiogram reveals that she is an acceptable candidate for surgery from a heart function standpoint. We will see how her ERCP goes and plan on scheduling her for laparoscopic cholecystectomy tomorrow. Current Visit: Yes Subjective Patient reports: Present: no new complaints, still having pain, pain is less, afebrile Exam - Constitutional Vitals: Period Temp Pulse Resp BP Sys/Blood Pulse Ox Last 24 Hr 97.5 F-100.5 F 64-102 17-20 94-135/41-75 92-100 General appearance: no acute distress, morbidly obese - Head Head exam: Present: normal inspection, normocephalic - Eye Eye exam: Present: EOMI. Absent: scleral icterus Pupils: Present: UDAY - ENT ENT exam: Present: normal exam Mouth exam: Present: normal external inspection, normal voice - Neck Neck exam: Present: normal inspection, trachea midline - Respiratory Respiratory exam: Present: clear to auscultation bilaterally. Absent: accessory muscle use, chest wall tenderness - Cardiovascular Cardiovascular exam: Present: RRR. Absent: systolic murmur, tachycardia - GI/Abdominal GI/Abdominal exam: Present: normal bowel sounds, tenderness, soft. Absent: distended, Adams's sign, rebound - Extremities Exam Extremities exam: Present: normal inspection, normal capillary refill - Back Exam Back exam: Present: normal inspection - Neurological Exam Neurological exam: Present: alert, oriented X3 Speech: Present: normal - Skin Skin exam: Present: normal color, warm Results - Labs CBC & BMP: 02/07/17 06:46 02/07/17 06:46 Quality Measures - Stroke Symptom Onset Unknown: No
--- NOTE | 2017-02-07 10:56 | Gastrointestinal Progress Note ---
<Deysi Weller - Last Filed: 02/07/17 10:52> Assessment and Plan (1) Abdominal pain Status: Acute Assessment and plan: 02/07-ERCP postponed due to hyponatremia. No abd pain at present time. Recheck sodium in the morning and proceed if improved. Plan and addendum to follow by Dr Mills. 02/06-sudden onset abdominal pain associated with nausea and vomiting. CT and HIDA scan results noted. Elevated liver enzymes. Plan for ERCP tomorrow to further evaluate. Plan an addendum to follow by Dr. Mills per Current Visit: Yes Gastroenterology - PN: Subj Interval history: CC: Abdominal pain Patient is awake alert with family at bedside. Patient was scheduled for an ERCP today however her hyponatremia has not been corrected this morning. She remains with low sodium of 128. Her LFTs are trending downward with slightly elevated bilirubin. She did have an echocardiogram on yesterday. Dr Helton is following at this time and will proceed with cholecystectomy pending findings of ERCP when able to proceed with this. She appears non-toxic, without abdominal pain. Will begin clear liquids today and recheck sodium in the morning. If improved will plan to proceed with ERCP at that time. ROS: Denies SOB or chest pain Exam (Progress Note) - Constitutional Vitals: Period Temp Pulse Resp BP Sys/Blood Pulse Ox Last 24 Hr 97.5 F-100.5 F 64-102 17-20 94-135/41-75 92-100 General appearance: normal weight, no acute distress - Head Head exam: Present: normal inspection, normocephalic - Eye Eye exam: Present: other (lids and conjunctiva unremarkable). Absent: scleral icterus - ENT ENT exam: Present: normal exam, normal oropharynx - Neck Neck exam: Present: normal inspection - Respiratory Respiratory exam: Present: clear to auscultation bilaterally. Absent: rales, rhonchi, wheezes - Cardiovascular Cardiovascular exam: Present: regular rate and rhythm. Absent: diastolic murmur , JVD, systolic murmur - GI/Abdominal GI/Abdominal exam: Present: normal bowel sounds, soft. Absent: ascites, distended, mass, organomegaly, tenderness - Extremities Exam Extremities exam: Present: normal inspection, full ROM - Back Exam Back exam: Present: normal inspection - Neurological Exam Neurological exam: Present: alert, oriented X3 - Psychiatric Psychiatric exam: Present: normal affect, normal mood - Skin Skin exam: Present: normal color, warm, dry Results - Labs CBC & BMP: 02/07/17 06:46 02/07/17 06:46 Lab Results: I have reviewed the past 24 hour labs <Ventura Mills - Last Filed: 02/07/17 17:50> Exam (Progress Note) - Constitutional Vitals: Period Temp Pulse Resp BP Sys/Blood Pulse Ox Last 24 Hr 97.5 F-98.7 F 64-100 16-20 94-136/41-82 97-100 Results - Labs CBC & BMP: 02/07/17 06:46 02/07/17 06:46
[2017-02-07] MEDS: HEPARIN 5,000 UNIT/1 ML VIAL SUBCUT SCH ×2 (11:11→21:26)
[2017-02-07] MEDS: GABAPENTIN 300 MG CAPSULE PO SCH (11:11)
[2017-02-07] MEDS: ASPIRIN CHEW 81 MG TABLET PO SCH (11:11)
[2017-02-07] MEDS: MULTIVITAMIN (CENTRUM) TABLET PO SCH (11:11)
[2017-02-07] MEDS: LEVOTHYROXINE 50 MCG TABLET PO SCH (11:11)
--- NOTE | 2017-02-07 13:12 | Hospitalist Progress Note ---
Assessment and Plan (1) CKD (chronic kidney disease) Status: Acute Assessment and plan: 1)GERMÁN on CKD- hydration started yesterday, creatinine increased, sodium remains 128. free water restriction started today. She sees Dr Travis- consult nephrology. renal US pending. did not get contrast with Ct at [facility] per radiology report. 2)history of "heart failure" per family, paroxysmal afib- echo with good EF, now tele is NSR. consult cardiology. 3)gallstones and nonfunctioning gallbladder- ERCP when electrolytes ok, may need surgery also. 4)pain in legs- on neurontin- decreasing dose because of worsening renal function. conservative measures, morphine prn. 5)headaches- had a head CT at [facility] before transfer- no acute findings. Current Visit: Yes (2) Afib Status: Acute Current Visit: Yes (3) History of heart failure Status: Acute Current Visit: Yes (4) Elevated transaminase level Status: Acute Current Visit: Yes (5) Bilirubinemia Status: Acute Current Visit: Yes (6) Dilated gallbladder Status: Acute Current Visit: Yes (7) Diabetes mellitus type 2 with complications Status: Acute Current Visit: Yes (8) Abdominal pain Status: Acute Current Visit: Yes (9) Cholelithiasis Status: Acute Current Visit: Yes Qualifiers: Cholelithiasis location: gallbladder Cholecystitis presence: with cholecystitis Cholecystitis acuity: acute Hospitalist: Subjective Interval history: Mrs Lopez was stable overnight, no events. She and her daughter in law are concerned that her legs twitch as they do at home when they hurt around her knees. Also she has had headaches for years and her daughter in law wants her to have a head CT. She does not have focal neuro symptoms. She denies shortness of breath or chest pain. Her exercise tolerance is poor and she only walks 6ft at a time at home between bed to chair to bathroom. She is dizzy and fatigued after showering for a long time so she no longer showers. Dr Bhardwaj evaluated her feet. Dr Mills planned ERCP today but had to hold off because her sodium is 128. Her creatinine is higher today than on admission, now 3.4. She seems to have intermittent afib, now tele looks like NSR. No history of afib. Exam - Constitutional Vitals: Period Temp Pulse Resp BP Sys/Blood Pulse Ox Last 24 Hr 97.5 F-98.9 F 64-84 17-20 94-135/41-75 92-100 General appearance: no acute distress, morbidly obese - Head Head exam: Present: normocephalic, atraumatic - Eye Eye exam: Present: EOMI, scleral icterus - Respiratory Respiratory exam: Present: clear to auscultation bilaterally - Cardiovascular Cardiovascular exam: Present: irregular rhythm - GI/Abdominal GI/Abdominal exam: Present: normal bowel sounds, tenderness (mild tendrness throughout her abdomen.), soft - Extremities Exam Extremities exam: Present: edema (dependent edema in her legs, particularly at her knees where it has settled with legs raised. ) Results - Labs CBC & BMP: 02/07/17 06:46 02/07/17 06:46 Lab Results: I have reviewed the past 24 hour labs Quality Measures - Stroke Symptom Onset Unknown: No
--- NOTE | 2017-02-07 15:02 | XRay Report ---
Portable chest Date: 02/07/2017 Clinical history: Congestive heart failure Comparison: 02/05/2017 Technique: Portable AP sitting chest Findings: The heart is minimally enlarged with uncoiling of the aorta. Calcification in the aortic knob. Minimally decreased diffuse parenchymal findings with possible residual small pleural effusions. Degenerative changes are noted with calcific findings adjacent to the humeral heads. Unremarkable mediastinum. Impression: Cardiomegaly with improved CHF with underlying chronic interstitial fibrosis/bullous emphysema. Indeterminant parenchymal densities especially at the left lung base. Follow-up chest x-ray recommended. PROCEDURE INTERPRETED AT [facility] DEPARTMENT OF RADIOLOGY Final Report Signed by: Dr. Sandra Gomes
[2017-02-07] MEDS: NYSTATIN POWDER 15 GM BOTTLE TOP SCH ×2 (15:17→21:36)
[2017-02-07] MEDS: GABAPENTIN 100 MG CAPSULE PO SCH ×2 (15:17→21:26)
--- NOTE | 2017-02-07 15:23 | Nephrology Consult Note ---
History of Present Illness Chief complaint: Elevated creatinine History of present illness: Ms. Lopez is a 82 year old female with known crf presenting with a recent fall and fractured metatarsal, cholelithiasis, worsening azotemia, and mild hyponatremia. She spends most of her time in bed at home. Since admission she has received iv fluid and antibiotic but creatinine kristina from2.3 to 3.4. She is unobstructed by renal sono. She is currently on Celexa. Home Medications Medication Instructions Recorded Confirmed Type Aspirin 81 mg PO DAILY 02/06/17 02/06/17 History Bumetanide 1 mg PO DAILY 02/06/17 02/06/17 History Citalopram [CeleXA] 20 mg PO DAILY 02/06/17 02/06/17 History Furosemide [Lasix] 20 mg PO DAILY 02/06/17 02/06/17 History Gabapentin 300 mg PO TID 02/06/17 02/06/17 History Insulin NPH Hum/Reg Insulin Hm 16 units SUBCUT DIRECTED 02/06/17 02/06/17 History [NovoLIN 70/30] Levothyroxine Tab [Synthroid Tab] 50 mcg PO DAILY 02/06/17 02/06/17 History Lisinopril 40 mg PO DAILY 02/06/17 02/06/17 History Multivit,Calc,Mins/Iron/Folic 1 tablet PO DAILY 02/06/17 02/06/17 History [Women's Daily Formula Caplet] Omeprazole 40 mg PO DAILY 02/06/17 02/06/17 History Simvastatin 80 mg PO BEDTIME 02/06/17 02/06/17 History metOLazone [Zaroxolyn] 2.5 mg PO DIRECTED 02/06/17 02/06/17 History Allergies Allergy/AdvReac Type Severity Reaction Status Date / Time No Known Allergies Allergy Unverified 02/06/17 01:18 Medical,Surgical,& Family Hx - Medical History Cardio: History of: CHF, CAD, Hypertension Psychological: History of: Depression Neurology: History of: TIA Endocrine: History of: Diabetes Mellitus (IDDM), Dyslipidemia Respiratory: History of: Pneumonia Renal: History of: Renal Failure Gastrointestinal: History of: GERD Hematology: History of: Anemia - Surgical History Thoracic Surgeries: Patient denies;: Organ Transplant HEENT Surgeries: Patient denies: Tonsilectomy & Adenoidectomy Abdominal Surgeries: Surgical HX of: Colonoscopy, EGD Orthopedic Surgeries: Surgical HX of;: Orthopedic Surgery (left ankle screws right foot in a cast from toes to knee) - Family History Family History: Reports;: Family Cancer, Family Diabetes, Family Heart Disease, Family Hypertension, Family Stroke - Social History Smoking Status: Never smoker Frequency of Alcohol Use: None Type of Drug Use: None Review of Systems 12 point system: reviewed and no additional remarkable complaints except as stated Exam - Vital Signs Vital signs: Period Temp Pulse Resp BP Sys/Blood Pulse Ox Last 24 Hr 97.5 F-98.9 F 64-84 17-20 94-135/41-75 92-100 - General Appearance General appearance: well-developed, well-nourished, appears started age Neck: no JVD, no thyromegaly, no carotid bruit, supple Respiratory: no kyphosis, no scoliosis Cardiology: no murmurs, no rub, no gallops, no edema, regular rate, regular rhythm, normal S1, normal S2 Gastrointestinal: normoactive bowel sounds Integumentary: no rash, warm and dry Neurologic: no focal deficit, no asterixis, alert and oriented x3, reflexes 2+ and symmetric, gait normal, strength 5/5 Musculoskeletal: no deformities (No obvious edema. Ecchymosis r great toe), no erythema, no cyanosis, no clubbing Results - Labs CBC & BMP: 02/07/17 06:46 02/07/17 06:46 Assessment and Plan - Time spent with patient Time spent with patient: Greater than 30 minutes (1) [id number] renal failure Status: Acute Current Visit: Yes Specialty Discharge - Follow Up or Referrals - Speciality Discharge Instructions Nephrology Instructions: For now, continue fluid but I doubt we'll see Na improve with that. 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 The acute component of her renal impairment is difficult to explain and it should improve.
--- NOTE | 2017-02-07 15:38 | Ultrasound Report ---
Exam: US renal Bilateral Date: 02/07/2017 1:07 PM Comparison: None Indication: Renal failure Technique:[Multiple transabdominal real-time scans were obtained of the kidneys. Color flow scans were obtained. Ultrasound images were captured and stored.] Findings: Right kidney measures 97 x 50 x 44 mm. Left kidney measures 75 x 45 x 42 mm. Color flow documented in the kidneys with no mass or hydronephrosis. Impression: Cortical loss in the kidneys, especially the left kidney. No masses or hydronephrosis. Inhomogeneous echogenicity which can be seen with possible medical renal disease. PROCEDURE INTERPRETED AT [facility] DEPARTMENT OF RADIOLOGY Final Report Signed by: Dr. Sandra Gomes
[2017-02-07] MEDS: NYSTATIN 500,000 UNIT/5 ML UDCUP SWISH/SWAL SCH ×2 (17:13→21:26)
--- NOTE | 2017-02-07 17:20 | Cardiology Consult Note ---
I, Samantha Vasquez RN, am scribing for, and in the presence of, Brando Ramos MD 17:17. Assessment and Plan - Time spent with patient Time spent with patient: Greater than 30 minutes (Due to assessment, planning, documentation, medication review) (1) Afib Status: Acute Assessment and plan: I have examined interviewed Mrs. Lopez, and agree with no code at the following impression and recommendations: 1. 82-year-old WF with hypertension and diabetes, who is a poor historian with foot fracture, abdominal pain, fatigue, fever (100.5 yesterday), with irregular heart rhythm possibly atrial fibrillation with controlled rate; this is uncertain from what I have seen, so I will order double standard rhythm strip ( not performed so I'll reorder it) 2. EF 60% with normal PA pressure 3. Give low-dose Toprol 25 mg daily to promote normal sinus rhythm and suppress ectopy 4. Previous "congestive heart failure" according to the family in the past 5. Prerenal azotemia, possibly related to dehydration 6. We'll follow with you Current Visit: Yes (2) CKD (chronic kidney disease) Status: Chronic Current Visit: Yes (3) History of heart failure Status: Chronic Current Visit: Yes History of Present Illness - Data of Consult Patient: new to practice Consult date: 02/07/17 Requesting Physician: Regina Harden - Consult Narrative Reason for consult: Atrial fibrillation History of present illness: Ms. Lopez is a 82 year old female who does not think she has ever seen a clay roaster. Ms. Lopez's daughter is at the bedside, but both of them are very unclear on her history. She has a history of CHF, hypertension, depression , TIA, IDDM, dyslipidemia, renal failure, and GERD. Both patient and daughter deny any known coronary disease. They also deny her ever having had a heart catheterization. They do not think she has been told that she was in atrial fibrillation and are not aware of her having a history of any problems with her heart rhythm. The only surgery she can remember having is on her left ankle. Family history is positive for father with DE and siblings with cancer. She reports she is a lifetime non-smoker, but does chew tobacco. About a week ago the patient fail and has bruising to her right foot from that fall. She thinks she lost consciousness, but she was conscious when the daughter got to her. Since that time she has been weak and has progressively gotten worse in the last week. Sunday she also started having nausea and vomiting and presented to the emergency department at [facility] for further evaluation. She was admitted to [facility] yesterday. Dr. Mills the plan ERCP today but it had to be rescheduled because her sodium is 128. Her creatinine was 2.3 on admission, today is 3.4. We have been asked to see the patient because of atrial fibrillation. EKG done this morning showed A. fib with heart rate of 86. Echo done yesterday showed ejection fraction 60%, 1-2+ left atrial enlargement, 1-2+ concentric LVH, and 1 + tricuspid regurgitation. Currently patient is resting in bed in no acute distress. She denies any chest pain, shortness of breath, palpitations, or dizziness. She also denies any nausea, vomiting, or abdominal discomfort. She is wearing oxygen via nasal cannula. Currently telemetry monitoring shows A. fib with heart rates in the 80s. According to the monitor take she is going in and out of A. fib having some periods of sinus rhythm. The daughter denies patient ever being on blood thinner except for the baby aspirin. She does report patient having some nosebleeds as well as blood in urine in the last several months. CC: Regina Harden MD - Home Medications and Allergies Home Medications: Home Medications Medication Instructions Recorded Confirmed Type Aspirin 81 mg PO DAILY 02/06/17 02/06/17 History Bumetanide 1 mg PO DAILY 02/06/17 02/06/17 History Citalopram [CeleXA] 20 mg PO DAILY 02/06/17 02/06/17 History Furosemide [Lasix] 20 mg PO DAILY 02/06/17 02/06/17 History Gabapentin 300 mg PO TID 02/06/17 02/06/17 History Insulin NPH Hum/Reg Insulin Hm 16 units SUBCUT DIRECTED 02/06/17 02/06/17 History [NovoLIN 70/30] Levothyroxine Tab [Synthroid Tab] 50 mcg PO DAILY 02/06/17 02/06/17 History Lisinopril 40 mg PO DAILY 02/06/17 02/06/17 History Multivit,Calc,Mins/Iron/Folic 1 tablet PO DAILY 02/06/17 02/06/17 History [Women's Daily Formula Caplet] Omeprazole 40 mg PO DAILY 02/06/17 02/06/17 History Simvastatin 80 mg PO BEDTIME 02/06/17 02/06/17 History metOLazone [Zaroxolyn] 2.5 mg PO DIRECTED 02/06/17 02/06/17 History Allergies/Adverse Reactions: Allergies Allergy/AdvReac Type Severity Reaction Status Date / Time No Known Allergies Allergy Unverified 02/06/17 01:18 - Constitutional Constitutional: Present: as per HPI - EENT Eyes: Present: blurry vision, loss of vision Ears: Present: tinnitus. Absent: decreased hearing Nose, mouth and throat: Present: epistaxis. Absent: dysphagia, neck pain - Cardiovascular Cardiovascular: Present: edema. Absent: chest pain at rest, chest pain with activity, diaphoresis, dyspnea, dyspnea on exertion, radiating jaw, neck or arm pain, lightheadedness, orthopnea, palpitations - Respiratory Respiratory: Absent: cough, dyspnea, hemoptysis, dyspnea on exertion, wheezing - Gastrointestinal Gastrointestinal: Present: constipation, nausea, vomiting. Absent: abdominal pain, diarrhea, hematemesis, hematochezia, melena - Genitourinary Genitourinary: Present: hematuria. Absent: dysuria - Musculoskeletal Musculoskeletal: Present: limited range of motion, muscle weakness - Neurological Neurological: Present: abnormal gait, abnormal speech, frequent falls, syncope ( Questionable). Absent: dizziness - Endocrine Endocrine: Present: fatigue - Hematologic/Lymphatic Hematologic/Lymphatic: Present: easy bleeding, easy bruising Medical,Surgical,& Family Hx - Medical History Cardio: History of: CHF, Hypertension Psychological: History of: Depression Neurology: History of: TIA Endocrine: History of: Diabetes Mellitus (IDDM), Dyslipidemia Respiratory: History of: Pneumonia Renal: History of: Renal Failure Gastrointestinal: History of: GERD Hematology: History of: Anemia - Surgical History Abdominal Surgeries: Surgical HX of: Colonoscopy, EGD Orthopedic Surgeries: Surgical HX of;: Orthopedic Surgery (left ankle screws right foot in a cast from toes to knee) - Family History Family History: Reports;: Family Cancer (Sibling), Family Diabetes, Family Heart Disease (Father), Family Hypertension, Family Stroke - Social History Smoking Status: Never smoker (Chews tobacco) Frequency of Alcohol Use: None Type of Drug Use: None Lives With:: Children Functional capacity: independent ambulation Physical Examination Vital Signs Temp Pulse Resp BP Pulse Ox 97.9 F 71 18 138/49 95 02/06/17 01:03 02/06/17 01:03 02/06/17 01:03 02/06/17 01:03 02/06/17 01:03 General: Present: Appears Well, No Apparent Distress HEENT: Present: PERRL, Mucus Membranes Moist Neck: Present: Supple Neck, Midline Trachea Cardiac: Present: Irregularly Regular Lungs: Present: Oxygen (Via nasal cannula) Neuro: Absent: Resting Tremor, Essential Tremor Abdomen: Present: Soft, Non-Tender. Absent: Distended Musculoskeletal: Present: Decreased Range of Motion Gait: Present: Poor Gait Extremities: Present: Normal Upper Extr. Pulses, Normal Lower Extr. Pulses, Edema (Trace edema to bilateral lower extremities). Absent: Normal Gait Result/EKG - Labs CBC & BMP: 02/07/17 06:46 02/07/17 06:46 Lab Results: I have reviewed the past 24 hour labs Labs: Laboratory Results - last 24 hr 02/06/17 02/06/17 02/06/17 13:31 15:11 20:36 WBC RBC Hgb Hct MCV MCH MCHC RDW Plt Count MPV Neut % (Auto) Lymph % (Auto) [place] % (Auto) Eos % (Auto) Baso % (Auto) Neut # (Auto) Lymph # (Auto) [place] # (Auto) Eos # (Auto) Baso # (Auto) Immature Gran % Nucleated RBC % Immature Gran # Nucleated RBCs # INR PT Patient/Control Mix Sodium Potassium Chloride Carbon Dioxide Anion Gap BUN Creatinine GFR Calculation BUN/Creatinine Ratio Glucose POC Glucose 319 H 119 H Calculated Osmolality Calcium Total Bilirubin AST ALT Alkaline Phosphatase Total Protein Albumin Globulin Albumin/Globulin Ratio Urine Color Cate Urine Appearance Slightly hazy Urine pH 5.0 Ur Specific [place] 1.014 Urine Protein 30 Urine Glucose (UA) Negative Urine Ketones Negative Urine Blood Small Urine Nitrate Negative Urine Bilirubin Negative Urine Urobilinogen 4.0 H Urine Leukocytes Moderate H Urine RBC 9 Urine WBC 33 Ur Squamous Epith Cells Occasional Ur Culture Indicated? Results to follow 02/07/17 02/07/17 02/07/17 06:46 06:46 06:46 WBC 7.7 D RBC 3.73 L Hgb 11.4 L Hct 33.6 L MCV 90.1 MCH 31 MCHC 33.9 RDW 13.3 Plt Count 277 MPV 10.1 Neut % (Auto) 64.4 Lymph % (Auto) 16.8 L [place] % (Auto) 12.3 Eos % (Auto) 5.1 Baso % (Auto) 0.9 H Neut # (Auto) 4.9 Lymph # (Auto) 1.3 L [place] # (Auto) 0.9 H Eos # (Auto) 0.4 Baso # (Auto) 0.1 Immature Gran % 0.5 Nucleated RBC % 0.0 Immature Gran # 0.04 Nucleated RBCs # 0.00 INR 1.0 PT Patient/Control Mix 11.0 Sodium 128 L Potassium 4.3 Chloride 88 L Carbon Dioxide 28 Anion Gap 16.3 H BUN 52 H Creatinine 3.40 H GFR Calculation 14 BUN/Creatinine Ratio 15.00 Glucose 237 H POC Glucose Calculated Osmolality 278.1 Calcium 8.2 L Total Bilirubin 2.50 H AST 199 H ALT 305 H Alkaline Phosphatase 296 H Total Protein 6.0 L Albumin 2.8 L Globulin 3.2 Albumin/Globulin Ratio 0.8 L Urine Color Urine Appearance Urine pH Ur Specific [place] Urine Protein Urine Glucose (UA) Urine Ketones Urine Blood Urine Nitrate Urine Bilirubin Urine Urobilinogen Urine Leukocytes Urine RBC Urine WBC Ur Squamous Epith Cells Ur Culture Indicated? 02/07/17 02/07/17 07:01 10:41 WBC RBC Hgb Hct MCV MCH MCHC RDW Plt Count MPV Neut % (Auto) Lymph % (Auto) [place] % (Auto) Eos % (Auto) Baso % (Auto) Neut # (Auto) Lymph # (Auto) [place] # (Auto) Eos # (Auto) Baso # (Auto) Immature Gran % Nucleated RBC % Immature Gran # Nucleated RBCs # INR PT Patient/Control Mix Sodium Potassium Chloride Carbon Dioxide Anion Gap BUN Creatinine GFR Calculation BUN/Creatinine Ratio Glucose POC Glucose 251 H 199 H Calculated Osmolality Calcium Total Bilirubin AST ALT Alkaline Phosphatase Total Protein Albumin Globulin Albumin/Globulin Ratio Urine Color Urine Appearance Urine pH Ur Specific [place] Urine Protein Urine Glucose (UA) Urine Ketones Urine Blood Urine Nitrate Urine Bilirubin Urine Urobilinogen Urine Leukocytes Urine RBC Urine WBC Ur Squamous Epith Cells Ur Culture Indicated? - EKG EKG results: interpreted by me EKG shows: atrial fibrillation Quality Measures - Stroke Symptom Onset Unknown: No I, Brando Ramos MD, personally performed the services described in this documentation, ascribed by Samantha Vasquez RN in my presence, and it is both accurate and complete .
[2017-02-07] MEDS: METOPROLOL SUCCINATE XL 25 MG TABLET PO SCH (17:22)
[2017-02-07] MEDS: SIMVASTATIN 80 MG TABLET PO SCH (21:26)
[2017-02-08] MEDS: PIPERACILLIN/TAZOBACTAM 3,375 MG in SODIUM CHLORIDE 0.9% 100 ML IV SCH ×3 (05:31→21:49)
[2017-02-08 06:39] LABS: Basophils # 0.1 10*3/uL (0.0-0.2); Basophils % 0.7 % (0.0-0.8); Eosinophils # 0.3 10*3/uL (0.0-0.87); Eosinophils % 2.7 % (0.00-10.9); Hematocrit 31.8 VOL% (35.7-47.0); Hemoglobin 10.8 GM/DL (12.0-16.0); Immature Granulocytes % 0.5 %; Immature Granulocytes Absolute 0.05 #; Lymphocytes # 1.6 10*3/uL (1.4-4.0); Lymphocytes % 16.2 % (21.3-54.2); Mean Corpuscular Hemoglobin 31 PG (27-34); Mean Corpuscular Volume 89.8 FL (87-102); Mean Platelet Volume 10.3 FL (9.6-12.0); Monocytes # 1.1 10*3/uL (0.11-0.8); Monocytes % 11.6 % (1.7-12.7); Neutrophils # 6.6 10*3/uL (1.4-7.4); Neutrophils % 68.3 % (38.7-73.9); Platelet Count 275 T/CUMM (130-400); Red Blood Count 3.54 MC/CUMM (3.8-5.5); Red Cell Distribution Width 13.2 % (9.3-17.3); White Blood Count 9.6 T/CUMM (4-12)
[2017-02-08 07:08] LABS: Albumin 2.3 G/DL (3.4-5.0); Calcium 7.7 MG/DL (8.5-10.1); Osmolality,Calculated 278.1 MOS/KG (273-304); Potassium 4.3 MMOL/L (3.5-5.1); Total Protein 5.7 G/DL (6.4-8.3)
--- NOTE | 2017-02-08 07:31 | General Surgery Progress Note ---
Assessment and Plan (1) Abdominal pain Status: Acute Assessment and plan: The patient is developing worsening renal failure and her medical comorbidities seem to be stacking up against her. I am becoming more more concerned as the days go by that she could actually tolerate a laparoscopic cholecystectomy right now. She may need to have a cholecystostomy tube to temporize her until she improved symptomatically. I will discuss this with her medical team today. Current Visit: Yes Subjective Patient reports: Present: no new complaints, feels better, still having pain, pain is less, fever Exam - Constitutional Vitals: Period Temp Pulse Resp BP Sys/Blood Pulse Ox Last 24 Hr 97.9 F-100.4 F 73-100 16-20 121-139/53-82 94-98 General appearance: no acute distress, morbidly obese - Head Head exam: Present: normal inspection, normocephalic - Eye Eye exam: Present: EOMI Pupils: Present: UDAY - ENT ENT exam: Present: normal exam Mouth exam: Present: normal external inspection, normal voice - Neck Neck exam: Present: normal inspection, trachea midline - Respiratory Respiratory exam: Present: clear to auscultation bilaterally. Absent: accessory muscle use, chest wall tenderness - Cardiovascular Cardiovascular exam: Present: RRR. Absent: systolic murmur, tachycardia - GI/Abdominal GI/Abdominal exam: Present: tenderness, soft. Absent: distended, guarding, Adams's sign, rebound - Extremities Exam Extremities exam: Present: normal inspection, normal capillary refill - Back Exam Back exam: Present: normal inspection - Neurological Exam Neurological exam: Present: alert, oriented X3 Speech: Present: normal - Skin Skin exam: Present: normal color, warm Results - Labs CBC & BMP: 02/08/17 05:52 02/08/17 05:52 Quality Measures - Stroke Symptom Onset Unknown: No
--- NOTE | 2017-02-08 07:44 | EKG Report ---
Stationary ECG Study [facility] Test Date: 02/07/2017 4:06:05 PM Pat Name: NIC RODRIGUEZ Department: Room: 235 Gender: F Dairy Processing Equipment Operator: CARLITA : 1935 Requested by: Brando Beck Order Number: [id number] Reading MD: JING CERNA Intervals [place] Rate: 81 P: 999 WI: 0 QRS: -2 QRSD: 81 T: 3 QT: 387 QTc: 424 Interpretive Statements ATRIAL FIBRILLATION LOW QRS VOLTAGE IN PRECORDIAL LEADS ABNORMAL RHYTHM ECG Electronically Signed On 02-12-17 11:23:18 CDT by JING CERNA [email or web address]
--- NOTE | 2017-02-08 08:21 | Orthopedic Progress Note ---
Orthopedics - Subjective Interval history: Mrs. Lopez is more alert today. She is complaining of bilateral foot pain. She remains a very poor historian. She has had multiple falls in the past. Bilateral feet are globally tender. She does seem to be more tender about her left small metatarsal. She still has aging ecchymosis involving her right great toe. Impression: bilateral foot pain probably related to her underlying lower extremity edema and varicose veins. Subacute left small metatarsal fracture Plan: I would continue to use the fracture shoe on her left lower extremity when ambulating. Reconsult with problems. Exam - Constitutional Vitals: Period Temp Pulse Resp BP Sys/Blood Pulse Ox Last 24 Hr 97.9 F-100.4 F 74-100 16-20 121-147/54-82 94-98 Results - Labs CBC & BMP: 02/08/17 05:52 02/08/17 05:52 Quality Measures - Stroke Symptom Onset Unknown: No
--- NOTE | 2017-02-08 08:47 | Nephrology Progress Note ---
Nephrology - PN: Subj Interval history: Ms. Lopez is seen in follow-up of her acute renal failure. She is lying flat in bed and is not in pain. She is not short of breath. Urine sodium was 30 and urine osmolality 344 so she is not excreting a significantly dilute urine in an effort to correct her hyponatremia. Nor is she holding onto sodium in an effort to preserve volume. Her creatinine has risen to 3.7 which is up slightly from yesterday's 3.4. Urine output is marginal. Chest is clear I think it is reasonable to continue saline as were giving and also reasonable to manage her with a cholecystostomy tube rather than a trip to the operating room as per Dr. Helton. She does not appear toxic but her whole presentation is somewhat less than clear-cut. She has diffuse discomfort when examined and very little history to help. We will continue to hold her Celexa and will also hold her Neurontin as a potential factor in her hyponatremia. Exam (PN)-Nephrology - Vital Signs Vital signs: Period Temp Pulse Resp BP Sys/Blood Pulse Ox Last 24 Hr 97.9 F-100.4 F 74-100 16-20 121-147/54-82 94-98 - Lab 02/08/17 05:52 02/08/17 05:52 Most recent lab results Calcium 7.7 MG/DL (8.5-10.1) L 02/08/17 05:52 Magnesium 1.5 MG/DL (1.8-2.4) L 02/06/17 04:36 Assessment and Plan (1) [id number] renal failure Status: Acute Current Visit: Yes
[2017-02-08] MEDS: LEVOTHYROXINE 50 MCG TABLET PO SCH (09:13)
[2017-02-08] MEDS: ASPIRIN CHEW 81 MG TABLET PO SCH (09:14)
[2017-02-08] MEDS: MULTIVITAMIN (CENTRUM) TABLET PO SCH (09:14)
[2017-02-08] MEDS: NYSTATIN 500,000 UNIT/5 ML UDCUP SWISH/SWAL SCH ×4 (09:14→21:47)
[2017-02-08] MEDS: HEPARIN 5,000 UNIT/1 ML VIAL SUBCUT SCH ×2 (09:15→21:47)
[2017-02-08] MEDS: INSULIN LISPRO 100 UNIT/ML SUBCUT SCH ×4 (10:00→21:48)
[2017-02-08] MEDS: METOPROLOL SUCCINATE XL 25 MG TABLET PO SCH (10:01)
[2017-02-08] MEDS: PANTOPRAZOLE 40 MG VIAL IV SCH (10:01)
[2017-02-08] MEDS: NYSTATIN POWDER 15 GM BOTTLE TOP SCH ×3 (10:02→21:47)
[2017-02-08] MEDS: SODIUM CHLORIDE 0.9% 1,000 ML IV SCH ×2 (10:35→21:55)
[2017-02-08] MEDS ORDERED: MAGNESIUM SULF RIDER 2 GM in PREMIX 1 EACH IV ONE (10:53)
--- NOTE | 2017-02-08 11:04 | EKG Report ---
Stationary ECG Study [facility] Test Date: 02/08/2017 11:04:14 AM Pat Name: NIC RODRIGUEZ Department: Room: 235 Gender: F Roofer Applicator: LILLIAM : 1935 Requested by: Brando Beck Order Number: [id number] Reading MD: JING CERNA Intervals [place] Rate: 73 P: 999 MT: 0 QRS: 25 QRSD: 86 T: 12 QT: 402 QTc: 427 Interpretive Statements SINUS RHYTHM WITH PREMATURE ATRIAL CONTRACTIONS Electronically Signed On 02-12-17 11:53:10 CDT by JING CERNA [email or web address]
--- NOTE | 2017-02-08 12:31 | Cardiology Progress Note ---
I, Samantha Vasquez RN, am scribing for, and in the presence of, Brando Ramos MD 12:29. Assessment and Plan (1) Afib Status: Acute Assessment and plan: Initial assessment 02/07/2017: 1. 82-year-old WF with hypertension and diabetes, who is a poor historian with foot fracture, abdominal pain, fatigue, fever (100.5 yesterday), with irregular heart rhythm possibly atrial fibrillation with controlled rate; this is uncertain from what I have seen, so I will order double standard rhythm strip ( not performed so I'll reorder it) 2. EF 60% with normal PA pressure 3. Give low-dose Toprol 25 mg daily to promote normal sinus rhythm and suppress ectopy 4. Previous "congestive heart failure" according to the family in the past 5. Prerenal azotemia, possibly related to dehydration 6. We'll follow with you February 08 update: 1. Although Mrs. Lopez has an irregular rhythm intermittently, her EKG today demonstrates she has ectopic atrial rhythm with frequent PACs; we'll continue to observe on telemetry. 2. She is a poor historian but says she feels better today. She knows that she is in the hospital but cannot tell me its name or the date. 3. Still having some fever, hyponatremia, renal dysfunction, workup for gallbladder disease with possible intervention today 4. Continue low-dose Toprol to suppress ectopy and promote sinus rhythm. 5. EF 60% with normal PA pressure noted 6. We'll follow with you. Current Visit: Yes (2) CKD (chronic kidney disease) Status: Chronic Current Visit: Yes (3) History of heart failure Status: Chronic Current Visit: Yes Cardiology - PN: Subj Interval history: Ms. Lopez is seen resting in bed in no acute distress. Oxygen use via nasal cannula, but she states she is not short of breath. She denies chest pain, palpitations, or dizziness. It appears she has been in and out of A. fib during the night, currently she is in sinus rhythm with heart rates in the 70s. She ran a temp during the night of 100.4, otherwise other vital signs have been stable throughout the night. Her creatinine has risen to 3.7, her liver enzymes have improved. Exam (Progress Note) - Constitutional Vitals: Period Temp Pulse Resp BP Sys/Blood Pulse Ox Last 24 Hr 97.9 F-100.4 F 74-100 16-20 121-147/54-82 94-98 General appearance: no acute distress, morbidly obese - Head Head exam: Absent: abrasion, hematoma - Eye Eye exam: Absent: periorbital swelling, laceration to eyelids - Respiratory Respiratory exam: Present: clear to auscultation bilaterally, other (Oxygen via nasal cannula). Absent: accessory muscle use, chest wall tenderness - Cardiovascular Cardiovascular exam: Present: regular rate and rhythm. Absent: diastolic murmur , systolic murmur - GI/Abdominal GI/Abdominal exam: Present: normal bowel sounds, tenderness, soft. Absent: distended - Extremities Exam Extremities exam: Present: edema (Bilateral lower extremity) - Neurological Exam Neurological exam: Present: alert, oriented X3 - Psychiatric Psychiatric exam: Present: normal affect, normal mood - Skin Skin exam: Present: warm, dry Result/EKG - Labs CBC & BMP: 02/08/17 05:52 02/08/17 05:52 Lab Results: I have reviewed the past 24 hour labs Labs: Laboratory Results - last 24 hr 02/07/17 02/07/17 02/07/17 10:41 13:55 15:45 WBC RBC Hgb Hct MCV MCH MCHC RDW Plt Count MPV Neut % (Auto) Lymph % (Auto) [place] % (Auto) Eos % (Auto) Baso % (Auto) Neut # (Auto) Lymph # (Auto) [place] # (Auto) Eos # (Auto) Baso # (Auto) Immature Gran % Nucleated RBC % Immature Gran # Nucleated RBCs # Sodium Potassium Chloride Carbon Dioxide Anion Gap BUN Creatinine GFR Calculation BUN/Creatinine Ratio Glucose POC Glucose 199 H Calculated Osmolality Calcium Total Bilirubin AST ALT Alkaline Phosphatase Total Protein Albumin Globulin Albumin/Globulin Ratio Urine Osmolality 344 Ur Random Sodium 31.0 02/07/17 02/07/17 02/08/17 17:16 20:12 05:52 WBC 9.6 RBC 3.54 L Hgb 10.8 L Hct 31.8 L MCV 89.8 MCH 31 MCHC 34.0 RDW 13.2 Plt Count 275 MPV 10.3 Neut % (Auto) 68.3 Lymph % (Auto) 16.2 L [place] % (Auto) 11.6 Eos % (Auto) 2.7 Baso % (Auto) 0.7 Neut # (Auto) 6.6 Lymph # (Auto) 1.6 [place] # (Auto) 1.1 H Eos # (Auto) 0.3 Baso # (Auto) 0.1 Immature Gran % 0.5 Nucleated RBC % 0.0 Immature Gran # 0.05 Nucleated RBCs # 0.00 Sodium Potassium Chloride Carbon Dioxide Anion Gap BUN Creatinine GFR Calculation BUN/Creatinine Ratio Glucose POC Glucose 325 H 301 H Calculated Osmolality Calcium Total Bilirubin AST ALT Alkaline Phosphatase Total Protein Albumin Globulin Albumin/Globulin Ratio Urine Osmolality Ur Random Sodium 02/08/17 02/08/17 05:52 07:15 WBC RBC Hgb Hct MCV MCH MCHC RDW Plt Count MPV Neut % (Auto) Lymph % (Auto) [place] % (Auto) Eos % (Auto) Baso % (Auto) Neut # (Auto) Lymph # (Auto) [place] # (Auto) Eos # (Auto) Baso # (Auto) Immature Gran % Nucleated RBC % Immature Gran # Nucleated RBCs # Sodium 128 L Potassium 4.3 Chloride 90 L Carbon Dioxide 25 Anion Gap 17.3 H BUN 59 H Creatinine 3.70 H GFR Calculation 13 BUN/Creatinine Ratio 15.00 Glucose 187 H POC Glucose 198 H Calculated Osmolality 278.1 Calcium 7.7 L Total Bilirubin 2.00 H AST 80 H ALT 194 H Alkaline Phosphatase 247 H Total Protein 5.7 L Albumin 2.3 L Globulin 3.4 Albumin/Globulin Ratio 0.6 L Urine Osmolality Ur Random Sodium - EKG EKG results: interpreted by me EKG shows: sinus rhythm Quality Measures - Stroke Symptom Onset Unknown: No I, Brando Ramos MD, personally performed the services described in this documentation, ascribed by Samantha Vasquez RN in my presence, and it is both accurate and complete .
--- NOTE | 2017-02-08 13:16 | Gastrointestinal Progress Note ---
<KeeganlesterDeysi Jessica - Last Filed: 02/08/17 13:14> Assessment and Plan (1) Abdominal pain Status: Acute Assessment and plan: 02/08-ERCP canceled today due to cardiac reasons. LFTs are trending down. Patient noted to be running low-grade fever overnight. Continue to monitor. Plan an addendum to follow by Dr. Mills. 02/07-ERCP postponed due to hyponatremia. No abd pain at present time. Recheck sodium in the morning and proceed if improved. Plan and addendum to follow by Dr Mills. 02/06-sudden onset abdominal pain associated with nausea and vomiting. CT and HIDA scan results noted. Elevated liver enzymes. Plan for ERCP tomorrow to further evaluate. Plan an addendum to follow by Dr. Mills per Current Visit: Yes Gastroenterology - PN: Subj Interval history: CC: Abdominal pain Patient is seen awake and alert with family at bedside. Patient was rescheduled for ERCP today however this has been canceled at this time. Cardiology is following and patient was felt proceeding with the procedure at this time was not optimal, cardiology will continue to monitor. She denies any abdominal pain at present time. Denies nausea vomiting. Abdomen is soft, nontender. We will continue to monitor at this point. ROS: Denies shortness of breath or chest pain Exam (Progress Note) - Constitutional Vitals: Period Temp Pulse Resp BP Sys/Blood Pulse Ox Last 24 Hr 98.1 F-100.4 F 74-100 16-20 121-147/54-85 94-98 General appearance: no acute distress, over weight - Head Head exam: Present: normal inspection, normocephalic - Eye Eye exam: Present: other (Lids and conjunctive are unremarkable). Absent: scleral icterus - ENT ENT exam: Present: normal exam, normal oropharynx - Neck Neck exam: Present: normal inspection - Respiratory Respiratory exam: Present: clear to auscultation bilaterally. Absent: rales, rhonchi, wheezes - Cardiovascular Cardiovascular exam: Present: regular rate and rhythm. Absent: diastolic murmur , JVD, systolic murmur - GI/Abdominal GI/Abdominal exam: Present: normal bowel sounds, soft. Absent: ascites, distended, mass, organomegaly, tenderness - Extremities Exam Extremities exam: Present: normal inspection, full ROM - Back Exam Back exam: Present: normal inspection - Neurological Exam Neurological exam: Present: alert, oriented X3 - Psychiatric Psychiatric exam: Present: normal affect, normal mood - Skin Skin exam: Present: normal color, warm, dry Results - Labs CBC & BMP: 02/08/17 05:52 02/08/17 05:52 Lab Results: I have reviewed the past 24 hour labs <Ventura Mills - Last Filed: 02/08/17 18:21> Exam (Progress Note) - Constitutional Vitals: Period Temp Pulse Resp BP Sys/Blood Pulse Ox Last 24 Hr 98.6 F-100.4 F 74-92 18-20 121-147/54-85 94-98 Results - Labs CBC & BMP: 02/08/17 05:52 02/08/17 05:52
--- NOTE | 2017-02-08 15:31 | Hospitalist Progress Note ---
Assessment and Plan - Time spent with patient Time spent with patient: Greater than 30 minutes (1) Cholelithiasis with acute cholecystitis with biliary obstruction Status: Acute Assessment and plan: 82-year-old white female with multiple medical problems admitted with acute on chronic kidney disease, cholecystitis with cholelithiasis, headaches, leg pain, and generalized progressive weakness. Dr. Harden has seen and examined patient and further recommendations to follow. Acute on chronic kidney disease/hyponatremia--hydration has been started and patient's creatinine continues to increase to 3.7 today. Her sodium remains at 128. She is on free water fluid restriction. Dr. 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 Her Celexa has been held. Her on Neurontin is being held as well as a possible source for hyponatremia. He is unsure of the acute component of the renal impairment but he is optimistic it will improve over time. CHF/A. fib--Dr. Ramos from cardiology has been consulted on the patient. He feels she has an irregular rhythm intermittently but her EKG is demonstrating ectopic atrial rhythm with frequent PACs. He wants to continue low-dose Toprol to suppress ectopy provide sinus rhythm. Her EF of 60% with normal PA pressures. Left metatarsal fracture--Dr. Bhardwaj from orthopedics has been consulted. He is recommending a postop shoe for her left foot when ambulating. He feels the majority of her leg pains most likely from her lower extremity edema and varicose veins. Cholecystitis with cholelithiasis--Dr. Helton from surgery is following this patient. Patient had a HIDA scan that showed no filling of the gallbladder. She has cystic duct obstruction. He feels patient would not do well undergoing surgery so he is recommending cholecystostomy tube placement by interventional radiology. Will consult them to place this in the morning. Current Visit: Yes (2) Hyponatremia Status: Acute Current Visit: Yes (3) Abdominal pain Status: Acute Current Visit: Yes (4) Afib Status: Acute Current Visit: Yes (5) History of heart failure Status: Chronic Current Visit: Yes (6) [id number] renal failure Status: Acute Current Visit: Yes (7) Fracture of metatarsal of left foot, closed Status: Acute Current Visit: Yes Hospitalist: Subjective Interval history: Ms. Lopez is resting comfortably in bed. She is still having some abdominal tenderness in the right upper quadrant but no complaints of nausea or vomiting. She states she has not been up out of the bed since admission. Her ERCP was canceled this morning but unsure of the reason. Exam - Constitutional Vitals: Period Temp Pulse Resp BP Sys/Blood Pulse Ox Last 24 Hr 98.1 F-100.4 F 74-100 16-20 121-147/54-85 94-98 Exam: 82-year-old white female, no acute distress, alert but not oriented Family members present Chest is clear CV irregular rhythm Abdomen obese, tender to palpation and right upper quadrant Extremities with no edema, bruising to the dorsum aspect of the left metatarsals Results - Labs CBC & BMP: 02/08/17 05:52 02/08/17 05:52 Lab Results: I have reviewed the past 24 hour labs Quality Measures - Stroke Symptom Onset Unknown: No
[2017-02-08] MEDS: MORPHINE 2 MG/1 ML SYRINGE IV PRN (16:16)
[2017-02-08] MEDS: URSODIOL 300 MG CAPSULE PO SCH (21:47)
[2017-02-08] MEDS: SIMVASTATIN 80 MG TABLET PO SCH (21:47)
[2017-02-09 03:44] LABS: Basophils # 0.1 10*3/uL (0.0-0.2); Basophils % 0.8 % (0.0-0.8); Eosinophils # 0.2 10*3/uL (0.0-0.87); Eosinophils % 1.8 % (0.00-10.9); Hemoglobin 9.9 GM/DL (12.0-16.0); Immature Granulocytes % 0.8 %; Immature Granulocytes Absolute 0.07 #; Lymphocytes # 1.1 10*3/uL (1.4-4.0); Lymphocytes % 12.4 % (21.3-54.2); Mean Corpuscular HGB Conc 34.1 GM/DL (32-36); Mean Corpuscular Hemoglobin 31 PG (27-34); Mean Corpuscular Volume 89.5 FL (87-102); Mean Platelet Volume 10.3 FL (9.6-12.0); Monocytes # 0.9 10*3/uL (0.11-0.8); Monocytes % 10.5 % (1.7-12.7); Neutrophils # 6.6 10*3/uL (1.4-7.4); Neutrophils % 73.7 % (38.7-73.9); Platelet Count 266 T/CUMM (130-400); Red Blood Count 3.24 MC/CUMM (3.8-5.5); Red Cell Distribution Width 13.1 % (9.3-17.3); White Blood Count 8.9 T/CUMM (4-12)
[2017-02-09 04:17] LABS: Albumin 2.2 G/DL (3.4-5.0); Bilirubin,Total 1.9 MG/DL (0.2-1.0); Calcium 7.8 MG/DL (8.5-10.1); Osmolality,Calculated 279.2 MOS/KG (273-304); Potassium 4.1 MMOL/L (3.5-5.1); Total Protein 5.3 G/DL (6.4-8.3)
[2017-02-09] MEDS: PIPERACILLIN/TAZOBACTAM 3,375 MG in SODIUM CHLORIDE 0.9% 100 ML IV SCH ×3 (05:31→20:40)
[2017-02-09] MEDS ORDERED: MIDAZOLAM 2 MG/2 ML VIAL IV ONE (07:25)
[2017-02-09] MEDS ORDERED: fentaNYL 100 MCG/2 ML VIAL IV ONE (07:25)
--- NOTE | 2017-02-09 09:02 | Nephrology Progress Note ---
Nephrology - PN: Subj Interval history: Ms. Lopez is seen in follow-up of her acute on chronic renal failure. Her creatinine is down today to 3.6 from 3.7. I reviewed office records and her baseline creatinine appears to be about 2.4 and that was measured 1-2 years ago. Her chest is clear and she is able to lie flat without any shortness of breath or difficulty breathing. She is to have gallbladder drainage today and we will continue to follow but I expect her renal function to continue back toward baseline. 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 The obvious drug causes have been stopped. We will continue to follow. Exam (PN)-Nephrology - Vital Signs Vital signs: Period Temp Pulse Resp BP Sys/Blood Pulse Ox Last 24 Hr 98.7 F-99.2 F 67-76 - 125-152/58-85 93-98 - Lab 02/09/17 03:09 02/09/17 03:09 Most recent lab results Calcium 7.8 MG/DL (8.5-10.1) L 02/09/17 03:09 Magnesium 1.5 MG/DL (1.8-2.4) L 02/06/17 04:36 Assessment and Plan (1) [id number] renal failure Status: Acute Current Visit: Yes
--- NOTE | 2017-02-09 09:20 | History and Physical Update ---
Sedation H&P Update - History and Physical H&P was reviewed, the patient examined and there: are no changes in the patients condition since last H&P was completed. - Physical Exam Mental Status: alert and oriented Heart: regular rate and rhythm Lung: clear to auscultation Abdomen: within normal limits, other (slight distended abdomen) Vitals: within normal limits - Sedation Plan for Sedation: minimal ASA Class: II Airway Assessment: Class II: Soft palate, uvula, fauces visible
--- NOTE | 2017-02-09 09:35 | Gastrointestinal Progress Note ---
<NithinDeysi Jessica - Last Filed: 02/09/17 09:33> Assessment and Plan (1) Abdominal pain Status: Acute Assessment and plan: 02/09-For percuntaneous cholecystostomy tube today. Afebrile. LFTs continue to trend down. Plan and addendum to follow by Dr Mills. 02/08-ERCP canceled today due to cardiac reasons. LFTs are trending down. Patient noted to be running low-grade fever overnight. Continue to monitor. Plan an addendum to follow by Dr. Mills. 02/07-ERCP postponed due to hyponatremia. No abd pain at present time. Recheck sodium in the morning and proceed if improved. Plan and addendum to follow by Dr Mills. 02/06-sudden onset abdominal pain associated with nausea and vomiting. CT and HIDA scan results noted. Elevated liver enzymes. Plan for ERCP tomorrow to further evaluate. Plan an addendum to follow by Dr. Mills per Current Visit: Yes Gastroenterology - PN: Subj Interval history: CC: Abd pain Pt is seen awake and alert, no family in room. She states she rested well overnight. Denies any abdominal pain at present time. She is scheduled for percutaneous cholecystostomy tube placement this morning. Abdomen is soft, nontender. Her LFTs continue to trend downward at present time. She is afebrile at this time. ROS: Denies SOB or chest pain Exam (Progress Note) - Constitutional Vitals: Period Temp Pulse Resp BP Sys/Blood Pulse Ox Last 24 Hr 98.7 F-99.2 F 67-76 18-21 125-152/58-85 93-98 General appearance: normal weight, no acute distress - Head Head exam: Present: normal inspection, normocephalic - Eye Eye exam: Present: other (lids and conjunctiva unremarakble). Absent: scleral icterus - ENT ENT exam: Present: normal exam, normal oropharynx - Neck Neck exam: Present: normal inspection - Respiratory Respiratory exam: Present: clear to auscultation bilaterally. Absent: rales, rhonchi, wheezes - Cardiovascular Cardiovascular exam: Present: regular rate and rhythm. Absent: diastolic murmur , JVD, systolic murmur - GI/Abdominal GI/Abdominal exam: Present: normal bowel sounds, soft. Absent: ascites, distended, mass, organomegaly, tenderness - Extremities Exam Extremities exam: Present: normal inspection, full ROM - Back Exam Back exam: Present: normal inspection - Neurological Exam Neurological exam: Present: alert, oriented X3 - Psychiatric Psychiatric exam: Present: normal affect, normal mood - Skin Skin exam: Present: normal color, warm, dry Results - Labs CBC & BMP: 02/09/17 03:09 02/09/17 03:09 Lab Results: I have reviewed the past 24 hour labs <Ventura Mills - Last Filed: 02/09/17 12:30> Exam (Progress Note) - Constitutional Vitals: Period Temp Pulse Resp BP Sys/Blood Pulse Ox Last 24 Hr 96.7 F-99.2 F 63-76 18-22 120-165/56-85 93-100 Results - Labs CBC & BMP: 02/09/17 03:09 02/09/17 03:09
[2017-02-09] MEDS: SODIUM CHLORIDE 0.9% 1,000 ML IV SCH ×2 (09:48→17:20)
[2017-02-09] MEDS: LEVOTHYROXINE 50 MCG TABLET PO SCH (09:48)
[2017-02-09] MEDS: MULTIVITAMIN (CENTRUM) TABLET PO SCH (09:49)
[2017-02-09] MEDS: SODIUM CHLORIDE 0.45% 1,000 ML IV SCH (09:49)
[2017-02-09] MEDS: INSULIN LISPRO 100 UNIT/ML SUBCUT SCH ×4 (09:49→21:30)
[2017-02-09] MEDS: ASPIRIN CHEW 81 MG TABLET PO SCH (09:49)
[2017-02-09] MEDS: NYSTATIN 500,000 UNIT/5 ML UDCUP SWISH/SWAL SCH ×4 (09:49→20:39)
[2017-02-09] MEDS: URSODIOL 300 MG CAPSULE PO SCH ×2 (09:49→20:39)
[2017-02-09] MEDS: HEPARIN 5,000 UNIT/1 ML VIAL SUBCUT SCH ×2 (09:50→20:39)
[2017-02-09] MEDS: METOPROLOL SUCCINATE XL 25 MG TABLET PO SCH (09:56)
[2017-02-09] MEDS: NYSTATIN POWDER 15 GM BOTTLE TOP SCH ×3 (09:56→20:40)
[2017-02-09] MEDS: PANTOPRAZOLE 40 MG VIAL IV SCH (09:56)
--- NOTE | 2017-02-09 10:47 | General Surgery Progress Note ---
Assessment and Plan (1) Abdominal pain Status: Acute Assessment and plan: The patient is supposed to get a cholecystostomy tube today. I will defer management of possibility of common duct stones to Dr. Mills but the cholecystostomy tube may be all that she needs to get her over her acute illness and allow her to recover medically. Current Visit: Yes Subjective Patient reports: Present: still having pain, afebrile. Absent: nausea, vomiting Exam - Constitutional Vitals: Period Temp Pulse Resp BP Sys/Blood Pulse Ox Last 24 Hr 97.4 F-99.2 F 64-76 18-21 120-152/56-85 93-99 General appearance: no acute distress, morbidly obese - Head Head exam: Present: normal inspection, normocephalic - Eye Eye exam: Present: EOMI. Absent: scleral icterus Pupils: Present: UDAY - ENT ENT exam: Present: normal exam Mouth exam: Present: normal external inspection, normal voice - Neck Neck exam: Present: normal inspection, trachea midline - Respiratory Respiratory exam: Present: clear to auscultation bilaterally. Absent: accessory muscle use, chest wall tenderness - Cardiovascular Cardiovascular exam: Present: RRR. Absent: systolic murmur, tachycardia - GI/Abdominal GI/Abdominal exam: Present: tenderness, soft. Absent: distended, hernia, Adams 's sign, rebound - Extremities Exam Extremities exam: Present: normal inspection, normal capillary refill - Back Exam Back exam: Present: normal inspection - Neurological Exam Neurological exam: Present: alert, oriented X3 Speech: Present: normal - Skin Skin exam: Present: normal color, warm Results - Labs CBC & BMP: 02/09/17 03:09 02/09/17 03:09 Quality Measures - Stroke Symptom Onset Unknown: No
[2017-02-09] MEDS ORDERED: fentaNYL 100 MCG/2 ML VIAL ONE (11:17)
--- NOTE | 2017-02-09 11:36 | Post Interventional Procedure ---
Pre-op diagnosis: distended gallbladder Post-op diagnosis: same Procedure: us perc cholecystostomy Radiologist: Sharad Turner Specimens: other Estimated blood loss: none Complications: none Condition: stable Description/Findings: Exam: IR cholecystostomy complete with ultrasound and fluoroscopy guidance Date: 02/09/2017 Indication: Distended gallbladder Comparison: CT abdomen pelvis VIR Sharad Turner D.O. [employer] Prasanth Barrios, RT Fluoroscopy time 0.1 minute Findings: The risk and benefits were explained informed consent was obtained. The patient was placed on examination table and abdomen was prepped with ChloraPrep. 1% local lidocaine was administered. A 22-gauge Chiba needle was then placed into the gallbladder with real-time ultrasound guidance. The patient had an 018 guidewire advanced and a 6 Belgian dilator sheath was placed. 035 wire was passed an 8 Belgian all-purpose drainage catheter was placed into the gallbladder. Fluoroscopy image was obtained confirming final position as well as ultrasound imaging. A bandage was applied and Percu-Stay device was placed. Estimated blood loss none Complications none Condition stable Specimen sent to lab for Gram stain and C&S. Impression: 1. Satisfactory ultrasound-guided fluoroscopy guided percutaneous cholecystostomy tube placement
--- NOTE | 2017-02-09 14:08 | Hospitalist Progress Note ---
Assessment and Plan (1) CKD (chronic kidney disease) Status: Chronic Assessment and plan: 1)GERMÁN on CKD- creatinine coming down a bit. Last one renal has is 1-2 years ago and was mid2s. continue IVF. 2)no heart failure on echo, now in NSR. She has ectopy, DR Ramos evaluating for a fib. 3)gallstones and nonfunctioning gallbladder- tube in to drain, monitor symptoms. She should improve and when stable from renal/cardiac perspective, could consider cholecystectomy. On actigall and Zosyn 4)pain in legs- no complaint today. healing fractures in left foot. instructions for activity in ortho note. 5)headaches for 40 years- head CT ok at [facility]. 6)morbid obesity Current Visit: Yes (2) Afib Status: Acute Current Visit: Yes (3) History of heart failure Status: Chronic Current Visit: Yes (4) Elevated transaminase level Status: Acute Current Visit: Yes (5) Bilirubinemia Status: Acute Current Visit: Yes (6) Dilated gallbladder Status: Acute Current Visit: Yes (7) Diabetes mellitus type 2 with complications Status: Acute Current Visit: Yes (8) Abdominal pain Status: Acute Current Visit: Yes (9) Cholelithiasis Status: Acute Current Visit: Yes Qualifiers: Cholelithiasis location: gallbladder Cholecystitis presence: with cholecystitis Cholecystitis acuity: acute Hospitalist: Subjective Interval history: Mrs Lopez is feeling ok today. She had no complaints of pain or shortness of breath. Her appetite is not great but she ate some of her lunch. She is willing to begin PT and OT and expresses a desire to maintain her mobility. Exam - Constitutional Vitals: Period Temp Pulse Resp BP Sys/Blood Pulse Ox Last 24 Hr 96.7 F-99.2 F 63-76 18-22 120-165/56-85 93-100 General appearance: no acute distress, morbidly obese - Eye Eye exam: Present: EOMI. Absent: scleral icterus - Respiratory Respiratory exam: Present: clear to auscultation bilaterally - Cardiovascular Cardiovascular exam: Present: regular rate and rhythm - GI/Abdominal GI/Abdominal exam: Present: normal bowel sounds, soft. Absent: tenderness ( cholecystostomy tube in place) - Extremities Exam Extremities exam: Present: edema (dependent portion of her legs, behind knees mainly. ) - Neurological Exam Neurological exam: Present: alert, oriented X3 Results - Labs CBC & BMP: 02/09/17 03:09 02/09/17 03:09 Lab Results: I have reviewed the past 24 hour labs Quality Measures - Stroke Symptom Onset Unknown: No
[2017-02-09] MEDS: MORPHINE 2 MG/1 ML SYRINGE IV PRN (14:31)
--- NOTE | 2017-02-09 15:02 | Cardiology Progress Note ---
Assessment and Plan (1) Afib Status: Acute Assessment and plan: Initial assessment 02/07/2017: 1. 82-year-old WF with hypertension and diabetes, who is a poor historian with foot fracture, abdominal pain, fatigue, fever (100.5 yesterday), with irregular heart rhythm possibly atrial fibrillation with controlled rate; this is uncertain from what I have seen, so I will order double standard rhythm strip ( not performed so I'll reorder it) 2. EF 60% with normal PA pressure 3. Give low-dose Toprol 25 mg daily to promote normal sinus rhythm and suppress ectopy 4. Previous "congestive heart failure" according to the family in the past 5. Prerenal azotemia, possibly related to dehydration 6. We'll follow with you February 08 update: 1. Although Mrs. Lopez has an irregular rhythm intermittently, her EKG today demonstrates she has ectopic atrial rhythm with frequent PACs; we'll continue to observe on telemetry. 2. She is a poor historian but says she feels better today. She knows that she is in the hospital but cannot tell me its name or the date. 3. Still having some fever, hyponatremia, renal dysfunction, workup for gallbladder disease with possible intervention today 4. Continue low-dose Toprol to suppress ectopy and promote sinus rhythm. 5. EF 60% with normal PA pressure noted 6. We'll follow with you. February 09 update: 1. Mrs. Lopez's EKG shows ectopic atrial rhythm with PACs versus wandering atrial pacemaker (benign), and not atrial fibrillation 2. Ejection fraction of 60% with normal PA pressure noted 3. Status post cholecystostomy per IR 4. Still has some stable hyponatremia, and renal dysfunction 5. No new recommendations 6. We'll sign off and plan follow-up in the next few weeks in clinic; please call if needed prior to discharge. Current Visit: Yes (2) CKD (chronic kidney disease) Status: Chronic Current Visit: Yes (3) History of heart failure Status: Chronic Current Visit: Yes Cardiology - PN: Subj Interval history: Mrs. Lopez has no complaints currently. She appears to be in no acute distress. She still no she is in the hospital was still cannot name it or tell me the year. She has no her name and her daughter's name and that she is in the hospital. Her daughter reports that she occasional "jerks" from her abdomen ? She reports that she does that at times as well from "bad nerves". She has not had chest discomfort and denies shortness of breath currently. Exam (Progress Note) - Constitutional Vitals: Period Temp Pulse Resp BP Sys/Blood Pulse Ox Last 24 Hr 96.7 F-99.2 F 63-76 18-22 120-165/56-85 93-100 General appearance: no acute distress, over weight - Head Head exam: Present: normal inspection, normocephalic, atraumatic - Respiratory Respiratory exam: Present: clear to auscultation bilaterally. Absent: stridor, wheezes - Cardiovascular Cardiovascular exam: Present: regular rate and rhythm. Absent: diastolic murmur , rubs - GI/Abdominal GI/Abdominal exam: Present: soft. Absent: tenderness - Extremities Exam Extremities exam: Absent: edema Result/EKG - Labs CBC & BMP: 02/09/17 03:09 02/09/17 03:09 Labs: Laboratory Results - last 24 hr 02/08/17 02/08/17 02/09/17 16:30 20:14 03:09 WBC 8.9 RBC 3.24 L Hgb 9.9 L Hct 29.0 L MCV 89.5 MCH 31 MCHC 34.1 RDW 13.1 Plt Count 266 MPV 10.3 Neut % (Auto) 73.7 Lymph % (Auto) 12.4 L [place] % (Auto) 10.5 Eos % (Auto) 1.8 Baso % (Auto) 0.8 Neut # (Auto) 6.6 Lymph # (Auto) 1.1 L [place] # (Auto) 0.9 H Eos # (Auto) 0.2 Baso # (Auto) 0.1 Immature Gran % 0.8 Nucleated RBC % 0.0 Immature Gran # 0.07 Nucleated RBCs # 0.00 Sodium Potassium Chloride Carbon Dioxide Anion Gap BUN Creatinine GFR Calculation BUN/Creatinine Ratio Glucose POC Glucose 151 H 235 H Calculated Osmolality Calcium Total Bilirubin AST ALT Alkaline Phosphatase Total Protein Albumin Globulin Albumin/Globulin Ratio 02/09/17 02/09/17 02/09/17 03:09 07:18 10:45 WBC RBC Hgb Hct MCV MCH MCHC RDW Plt Count MPV Neut % (Auto) Lymph % (Auto) [place] % (Auto) Eos % (Auto) Baso % (Auto) Neut # (Auto) Lymph # (Auto) [place] # (Auto) Eos # (Auto) Baso # (Auto) Immature Gran % Nucleated RBC % Immature Gran # Nucleated RBCs # Sodium 127 L Potassium 4.1 Chloride 92 L Carbon Dioxide 23 Anion Gap 16.1 H BUN 64 H Creatinine 3.60 H GFR Calculation 13 BUN/Creatinine Ratio 17.00 Glucose 233 H POC Glucose 206 H 179 H Calculated Osmolality 279.2 Calcium 7.8 L Total Bilirubin 1.90 H AST 38 H ALT 126 H Alkaline Phosphatase 202 H Total Protein 5.3 L Albumin 2.2 L Globulin 3.1 Albumin/Globulin Ratio 0.7 L Quality Measures - Stroke Symptom Onset Unknown: No Specialty Discharge - Follow Up or Referrals Follow up with: Brando Ramos MD [Physician] - 1 Month (With EKG FLP CMP CBC)
[2017-02-09] MEDS: SIMVASTATIN 80 MG TABLET PO SCH (20:40)
[2017-02-10 05:56] LABS: Basophils # 0.1 10*3/uL (0.0-0.2); Basophils % 0.8 % (0.0-0.8); Eosinophils # 0.4 10*3/uL (0.0-0.87); Eosinophils % 5.2 % (0.00-10.9); Hematocrit 28.1 VOL% (35.7-47.0); Hemoglobin 9.7 GM/DL (12.0-16.0); Immature Granulocytes % 0.8 %; Immature Granulocytes Absolute 0.06 #; Lymphocytes # 0.9 10*3/uL (1.4-4.0); Lymphocytes % 11.9 % (21.3-54.2); Mean Corpuscular HGB Conc 34.5 GM/DL (32-36); Mean Corpuscular Hemoglobin 31 PG (27-34); Mean Corpuscular Volume 89.2 FL (87-102); Mean Platelet Volume 10.4 FL (9.6-12.0); Monocytes # 0.8 10*3/uL (0.11-0.8); Monocytes % 10.6 % (1.7-12.7); Neutrophils # 5.4 10*3/uL (1.4-7.4); Neutrophils % 70.7 % (38.7-73.9); Platelet Count 273 T/CUMM (130-400); Red Blood Count 3.15 MC/CUMM (3.8-5.5); Red Cell Distribution Width 13.5 % (9.3-17.3); White Blood Count 7.6 T/CUMM (4-12)
[2017-02-10 06:25] LABS: Calcium 7.6 MG/DL (8.5-10.1); Magnesium 2.7 MG/DL (1.8-2.4); Osmolality,Calculated 288.8 MOS/KG (273-304); Potassium 4.4 MMOL/L (3.5-5.1)
[2017-02-10] MEDS: PIPERACILLIN/TAZOBACTAM 3,375 MG in SODIUM CHLORIDE 0.9% 100 ML IV SCH ×2 (06:25→18:35)
[2017-02-10] MEDS: SODIUM CHLORIDE 0.9% 1,000 ML IV SCH ×4 (06:27→23:22)
[2017-02-10] MEDS: LEVOTHYROXINE 50 MCG TABLET PO SCH (07:30)
[2017-02-10] MEDS: NYSTATIN 500,000 UNIT/5 ML UDCUP SWISH/SWAL SCH ×4 (07:50→20:41)
[2017-02-10] MEDS: INSULIN LISPRO 100 UNIT/ML SUBCUT SCH ×4 (09:00→23:21)
[2017-02-10] MEDS: HEPARIN 5,000 UNIT/1 ML VIAL SUBCUT SCH ×2 (09:35→20:40)
[2017-02-10] MEDS: METOPROLOL SUCCINATE XL 25 MG TABLET PO SCH (09:41)
[2017-02-10] MEDS: URSODIOL 300 MG CAPSULE PO SCH ×2 (09:41→20:41)
[2017-02-10] MEDS: ASPIRIN CHEW 81 MG TABLET PO SCH (09:41)
[2017-02-10] MEDS: MULTIVITAMIN (CENTRUM) TABLET PO SCH (09:41)
[2017-02-10] MEDS: PANTOPRAZOLE 40 MG VIAL IV SCH (09:44)
[2017-02-10] MEDS: NYSTATIN POWDER 15 GM BOTTLE TOP SCH ×3 (09:45→20:41)
[2017-02-10] MEDS: MORPHINE 2 MG/1 ML SYRINGE IV PRN ×2 (09:52→18:31)
--- NOTE | 2017-02-10 09:56 | Hospitalist Progress Note ---
Assessment and Plan (1) Cholelithiasis Status: Acute Assessment and plan: Impression: 1. Cholelithiasis/cholecystitis, status post cholecystostomy 2. Acute on chronic kidney injury. This appears to be worsening 3. Chronic diastolic congestive heart failure on echo 4. Morbid obesity Plan: I reviewed her medication list. She is not on any nephrotoxic agents. We will increase IV fluid to bed. Continue physical therapy. Patient is agreeable to swing bed in an attempt to improve functional status prior to cholecystectomy. This note was completed using [employer] voice recognition software. There may be band ripsaw operator errors as a result. Current Visit: Yes Qualifiers: Cholelithiasis location: gallbladder Cholecystitis presence: with cholecystitis Cholecystitis acuity: acute Hospitalist: Subjective Interval history: Follow-up cholecystitis, probable diastolic congestive heart failure, and acute kidney injury. The patient is now status post cholecystostomy. She was apparently a poor surgical candidate for cholecystectomy. Daughter is very concerned about a decrease in the patient's urine output. The patient has known chronic kidney disease, with a baseline creatinine of about 2. The patient is awake and conversant. Her functional status is that she had been able to get out of bed and get to the bathroom, which is about 10 or 15 feet. Her functional status has gradually deteriorated over the past year or so. The daughter reports numerous calls to 911 to help the patient off the floor when she falls. Exam - Constitutional Vitals: Period Temp Pulse Resp BP Sys/Blood Pulse Ox Last 24 Hr 96.7 F-98.9 F 60-67 14-22 117-165/58-85 94-100 Vital signs are normal and noted above. Heart is irregular with some occasional missed beats. Chest is clear anteriorly and laterally. Abdomen is obese with positive bowel sounds and no significant mass. Cholecystostomy is draining bronze colored bile. Results - Labs CBC & BMP: 02/10/17 05:26 02/10/17 05:26 Lab Results: I have reviewed the past 24 hour labs (Creatinine has trended up over the past 24 hours.) Quality Measures - Stroke Symptom Onset Unknown: No Specialty Discharge - Follow Up or Referrals Follow up with: Brando Ramos MD [Physician] - 1 Month (With EKG FLP CMP CBC)
--- NOTE | 2017-02-10 11:37 | General Surgery Progress Note ---
Assessment and Plan (1) Abdominal pain Status: Acute Assessment and plan: Continue percutaneous drainage of the gallbladder. We will continue to follow the patient's LFTs to ensure that her bilirubin normalizes. the patient will see me back in clinic 2 weeks after discharge for removal of her drain. Current Visit: Yes Subjective Patient reports: Present: no new complaints, tolerating a regular diet, afebrile Narrative: The patient had a percutaneous cholecystostomy tube placed yesterday. Exam - Constitutional Vitals: Period Temp Pulse Resp BP Sys/Blood Pulse Ox Last 24 Hr 96.7 F-98.9 F 60-67 14-22 117-138/58-62 94-100 General appearance: no acute distress, morbidly obese - Head Head exam: Present: normal inspection, normocephalic - Eye Eye exam: Present: EOMI Pupils: Present: UDAY - ENT ENT exam: Present: normal exam Mouth exam: Present: normal external inspection, normal voice - Neck Neck exam: Present: normal inspection, trachea midline - Respiratory Respiratory exam: Present: clear to auscultation bilaterally. Absent: accessory muscle use, chest wall tenderness - Cardiovascular Cardiovascular exam: Present: RRR. Absent: systolic murmur, tachycardia - GI/Abdominal GI/Abdominal exam: Present: soft, other (Percutaneous cholecystostomy tube is draining more light bile but there is a lot of dark infected bile in the bag.). Absent: tenderness, rebound - Extremities Exam Extremities exam: Present: normal inspection, normal capillary refill - Back Exam Back exam: Present: normal inspection - Neurological Exam Neurological exam: Present: alert, oriented X3 Speech: Present: normal - Skin Skin exam: Present: normal color, warm Results - Labs CBC & BMP: 02/10/17 05:26 02/10/17 05:26 Quality Measures - Stroke Symptom Onset Unknown: No Specialty Discharge - Follow Up or Referrals Follow up with: Brando Ramos MD [Physician] - 1 Month (With EKG FLP CMP CBC)
--- NOTE | 2017-02-10 14:20 | Nephrology Progress Note ---
Nephrology - PN: Subj Interval history: Patient is resting comfortably no acute changes. Serum creatinine is noted be 4.7. 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
[2017-02-10] MEDS: SIMVASTATIN 80 MG TABLET PO SCH (20:41)
[2017-02-11] MEDS: PIPERACILLIN/TAZOBACTAM 3,375 MG in SODIUM CHLORIDE 0.9% 100 ML IV SCH ×2 (05:30→17:04)
[2017-02-11] MEDS: LEVOTHYROXINE 50 MCG TABLET PO SCH (05:59)
[2017-02-11 06:39] LABS: Basophils # 0.1 10*3/uL (0.0-0.2); Basophils % 0.9 % (0.0-0.8); Eosinophils # 0.5 10*3/uL (0.0-0.87); Eosinophils % 6.5 % (0.00-10.9); Hematocrit 29.7 VOL% (35.7-47.0); Hemoglobin 10.1 GM/DL (12.0-16.0); Immature Granulocytes % 0.7 %; Immature Granulocytes Absolute 0.06 #; Mean Corpuscular Hemoglobin 31 PG (27-34); Mean Corpuscular Volume 89.7 FL (87-102); Mean Platelet Volume 10.1 FL (9.6-12.0); Monocytes # 0.7 10*3/uL (0.11-0.8); Monocytes % 8.5 % (1.7-12.7); Neutrophils # 5.8 10*3/uL (1.4-7.4); Neutrophils % 71.4 % (38.7-73.9); Platelet Count 325 T/CUMM (130-400); Red Blood Count 3.31 MC/CUMM (3.8-5.5); Red Cell Distribution Width 13.3 % (9.3-17.3); White Blood Count 8.2 T/CUMM (4-12)
[2017-02-11 07:22] LABS: Albumin 1.8 G/DL (3.4-5.0); Bilirubin,Direct 0.8 MG/DL (0.0-0.20); Bilirubin,Total 1.2 MG/DL (0.2-1.0); Calcium 7.7 MG/DL (8.5-10.1); Osmolality,Calculated 292.7 MOS/KG (273-304); Potassium 4.8 MMOL/L (3.5-5.1); Total Protein 5.3 G/DL (6.4-8.3)
[2017-02-11] MEDS: NYSTATIN 500,000 UNIT/5 ML UDCUP SWISH/SWAL SCH ×4 (08:59→21:24)
[2017-02-11] MEDS ORDERED: BISACODYL 5 MG TABLET PO PRN (09:05)
--- NOTE | 2017-02-11 09:06 | Nephrology Progress Note ---
Nephrology - PN: Subj Interval history: The patient is resting comfortably, she complains of constipation. Urine output has been approximately 300 cc since last night. Serum creatinine is noted to be up to 5.7. Exam (PN)-Nephrology - Vital Signs Vital signs: Period Temp Pulse Resp BP Sys/Blood Pulse Ox Last 24 Hr 97.2 F-98.6 F 56-65 15-20 118-164/54-82 95-100 - General Appearance General appearance: well-developed, well-nourished EENT: ATNC Neck: supple Respiratory: clear Cardiology: no edema, regular rate, regular rhythm Gastrointestinal: normoactive bowel sounds Neurologic: alert and oriented x3, CN 3-12 intact Musculoskeletal: no clubbing Psychiatric: mood/affect appropriate, cooperative - Lab 02/11/17 06:24 02/11/17 06:24 Most recent lab results Calcium 7.7 MG/DL (8.5-10.1) L 02/11/17 06:24 Magnesium 2.7 MG/DL (1.8-2.4) H 02/11/17 06:24 Assessment and Plan (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
[2017-02-11] MEDS: PANTOPRAZOLE 40 MG VIAL IV SCH (09:41)
[2017-02-11] MEDS: METOPROLOL SUCCINATE XL 25 MG TABLET PO SCH (09:43)
[2017-02-11] MEDS: URSODIOL 300 MG CAPSULE PO SCH ×2 (09:43→21:24)
[2017-02-11] MEDS: ASPIRIN CHEW 81 MG TABLET PO SCH (09:44)
[2017-02-11] MEDS: MORPHINE 2 MG/1 ML SYRINGE IV PRN ×2 (09:44→15:42)
[2017-02-11] MEDS: MULTIVITAMIN (CENTRUM) TABLET PO SCH (09:45)
[2017-02-11] MEDS: NYSTATIN POWDER 15 GM BOTTLE TOP SCH ×3 (09:48→21:24)
[2017-02-11] MEDS: HEPARIN 5,000 UNIT/1 ML VIAL SUBCUT SCH ×2 (09:49→21:23)
--- NOTE | 2017-02-11 09:53 | Hospitalist Progress Note ---
Assessment and Plan (1) Cholelithiasis Status: Acute Assessment and plan: Impression: 1. Cholelithiasis/cholecystitis, status post cholecystostomy 2. Acute on chronic kidney injury. This appears to be worsening 3. Chronic diastolic congestive heart failure on echo 4. Morbid obesity Plan: I reviewed her medication list. She is not on any nephrotoxic agents, and nephrology is also evaluating. I have ordered a laxative. Continue physical therapy as she tolerates. This note was completed using [employer] voice recognition software. 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 Current Visit: Yes Qualifiers: Cholelithiasis location: gallbladder Cholecystitis presence: with cholecystitis Cholecystitis acuity: acute Hospitalist: Subjective Interval history: Follow-up nonfunctioning gallbladder, constipation, acute renal failure, and deconditioning. Family reports that the patient is still having difficulty with constipation, and is requesting a laxative. Cholecystostomy tube continues to drain, and there is about 100 mL of bile in the bag. Creatinine is continuing to trend upward. She is not doing much in physical therapy. Exam - Constitutional Vitals: Period Temp Pulse Resp BP Sys/Blood Pulse Ox Last 24 Hr 97.2 F-98.6 F 56-65 15-20 118-164/54-82 95-100 She is afebrile. Heart is regular with no murmur. Lungs are clear anteriorly with no rales or wheezes. Abdomen is protuberant with positive bowel sounds and some vague tenderness. Cholecystostomy exit site looks clean. Results - Labs CBC & BMP: 02/11/17 06:24 02/11/17 06:24 Lab Results: I have reviewed the past 24 hour labs Quality Measures - Stroke Symptom Onset Unknown: No Specialty Discharge - Follow Up or Referrals Follow up with: Brando Ramos MD [Physician] - 1 Month (With EKG FLP CMP CBC)
[2017-02-11] MEDS: INSULIN LISPRO 100 UNIT/ML SUBCUT SCH ×4 (10:32→21:23)
[2017-02-11] MEDS: SORBITOL 30 ML BOTTLE PO SCH (11:14)
[2017-02-11] MEDS: SODIUM CHLORIDE 0.9% 1,000 ML IV SCH (11:17)
--- NOTE | 2017-02-11 13:14 | General Surgery Progress Note ---
Assessment and Plan (1) Abdominal pain Status: Acute Assessment and plan: Continue percutaneous drain. The antibiotics need to be continued until we see what happens with her bilirubin but it is improving and is down to 1.2 now so we will just watch this for the time being. Her antibiotics need to be dosed for her renal dysfunction I will leave this up to the medical team. We will continue to follow her. Current Visit: Yes Subjective Patient reports: Present: no new complaints, tolerating a regular diet, afebrile Narrative: Patient's creatinine is gone up to 5.7 and her BUN is 85 today. She is not really complaining of much abdominal problems. Her drain is working well. Exam - Constitutional Vitals: Period Temp Pulse Resp BP Sys/Blood Pulse Ox Last 24 Hr 97.2 F-98.6 F 56-60 15-20 118-164/54-72 95-100 General appearance: no acute distress, morbidly obese - Head Head exam: Present: normal inspection - Eye Eye exam: Present: EOMI Pupils: Present: UDAY - ENT ENT exam: Present: normal exam Mouth exam: Present: normal external inspection, normal voice - Neck Neck exam: Present: normal inspection, trachea midline - Respiratory Respiratory exam: Present: clear to auscultation bilaterally. Absent: accessory muscle use, chest wall tenderness - Cardiovascular Cardiovascular exam: Present: RRR. Absent: systolic murmur, tachycardia - GI/Abdominal GI/Abdominal exam: Present: soft, other (The pigtail catheter is draining some bilious fluid. There is no evidence of problems here. The patient is minimally tender around the drain which is expected.). Absent: tenderness - Extremities Exam Extremities exam: Present: normal inspection, normal capillary refill - Back Exam Back exam: Present: normal inspection - Neurological Exam Neurological exam: Present: alert, oriented X3 Speech: Present: normal - Skin Skin exam: Present: normal color, warm Results - Labs CBC & BMP: 02/11/17 06:24 02/11/17 06:24 Quality Measures - Stroke Symptom Onset Unknown: No Specialty Discharge - Follow Up or Referrals Follow up with: Brando Ramos MD [Physician] - 1 Month (With EKG FLP CMP CBC)
[2017-02-11] MEDS: DOCUSATE SODIUM 100 MG CAPSULE PO SCH (21:24)
[2017-02-11] MEDS: SIMVASTATIN 80 MG TABLET PO SCH (21:24)
[2017-02-12 06:19] LABS: Basophils # 0.1 10*3/uL (0.0-0.2); Basophils % 0.9 % (0.0-0.8); Eosinophils # 0.5 10*3/uL (0.0-0.87); Hematocrit 29.7 VOL% (35.7-47.0); Hemoglobin 9.6 GM/DL (12.0-16.0); Immature Granulocytes % 0.9 %; Immature Granulocytes Absolute 0.07 #; Lymphocytes # 1.4 10*3/uL (1.4-4.0); Lymphocytes % 17.6 % (21.3-54.2); Mean Corpuscular HGB Conc 32.3 GM/DL (32-36); Mean Corpuscular Hemoglobin 30 PG (27-34); Mean Corpuscular Volume 93.4 FL (87-102); Mean Platelet Volume 10.2 FL (9.6-12.0); Monocytes # 0.8 10*3/uL (0.11-0.8); Monocytes % 10.1 % (1.7-12.7); Neutrophils # 4.9 10*3/uL (1.4-7.4); Neutrophils % 63.5 % (38.7-73.9); Platelet Count 371 T/CUMM (130-400); Red Blood Count 3.18 MC/CUMM (3.8-5.5); Red Cell Distribution Width 13.4 % (9.3-17.3); White Blood Count 7.7 T/CUMM (4-12)
[2017-02-12] MEDS: PIPERACILLIN/TAZOBACTAM 3,375 MG in SODIUM CHLORIDE 0.9% 100 ML IV SCH ×2 (06:36→18:30)
[2017-02-12] MEDS: SODIUM CHLORIDE 0.9% 1,000 ML IV SCH ×2 (06:37→23:18)
[2017-02-12] MEDS: LEVOTHYROXINE 50 MCG TABLET PO SCH (06:37)
[2017-02-12 06:46] LABS: Calcium 7.7 MG/DL (8.5-10.1); Magnesium 2.6 MG/DL (1.8-2.4); Osmolality,Calculated 296.5 MOS/KG (273-304)
[2017-02-12 06:56] LABS: Albumin 1.8 G/DL (3.4-5.0); Bilirubin,Direct 0.6 MG/DL (0.0-0.20); Bilirubin,Indirect 0.2 MG/DL (0.0-1.0); Bilirubin,Total 0.8 MG/DL (0.2-1.0); Total Protein 5.2 G/DL (6.4-8.3)
--- NOTE | 2017-02-12 08:29 | Nephrology Progress Note ---
Nephrology - PN: Subj Interval history: Ms. Lopez is seen in follow-up of her acute on chronic renal failure. Her creatinine kristina to 5.7 yesterday but is 5.5 today. She has had placement of a percutaneous gallbladder drain last week. Urine output is somewhat marginal 3- 600 cc per day. She is not short of breath and is comfortable. Potassium is 5 bicarb is 21. She is on renal adjusted Zosyn. We will continue to follow for now she does not need dialysis I expect this to turnaround before that is required. Hopefully this represents altered renal perfusion in the face of her other illnesses. Her serum sodium is correcting and is 132 today. Exam (PN)-Nephrology - Vital Signs Vital signs: Period Temp Pulse Resp BP Sys/Blood Pulse Ox Last 24 Hr 96.9 F-98.4 F 58-67 20-20 128-154/50-70 96-99 - Lab 02/12/17 05:17 02/12/17 05:17 Most recent lab results Calcium 7.7 MG/DL (8.5-10.1) L 02/12/17 05:17 Magnesium 2.6 MG/DL (1.8-2.4) H 02/12/17 05:17 Assessment and Plan (1) [id number] renal failure Status: Acute Current Visit: Yes Specialty Discharge - Follow Up or Referrals Follow up with: Brando Ramos MD [Physician] - 1 Month (With EKG FLP CMP CBC)
[2017-02-12] MEDS: INSULIN LISPRO 100 UNIT/ML SUBCUT SCH ×4 (09:17→21:15)
[2017-02-12] MEDS: PANTOPRAZOLE 40 MG VIAL IV SCH (09:19)
[2017-02-12] MEDS: MULTIVITAMIN (CENTRUM) TABLET PO SCH (09:20)
[2017-02-12] MEDS: HEPARIN 5,000 UNIT/1 ML VIAL SUBCUT SCH ×2 (09:20→21:16)
[2017-02-12] MEDS: ASPIRIN CHEW 81 MG TABLET PO SCH (09:20)
[2017-02-12] MEDS: DOCUSATE SODIUM 100 MG CAPSULE PO SCH ×2 (09:20→21:16)
[2017-02-12] MEDS: URSODIOL 300 MG CAPSULE PO SCH ×2 (09:20→21:16)
[2017-02-12] MEDS: NYSTATIN 500,000 UNIT/5 ML UDCUP SWISH/SWAL SCH ×4 (09:20→21:16)
[2017-02-12] MEDS: NYSTATIN POWDER 15 GM BOTTLE TOP SCH ×3 (09:21→21:16)
[2017-02-12] MEDS: SORBITOL 30 ML BOTTLE PO SCH (10:15)
[2017-02-12] MEDS: METOPROLOL SUCCINATE XL 25 MG TABLET PO SCH (10:16)
--- NOTE | 2017-02-12 11:30 | General Surgery Progress Note ---
Assessment and Plan (1) Abdominal pain Status: Acute Assessment and plan: Continue percutaneous drain. Bilirubin is downtrending nicely. No further intervention is planned. Current Visit: Yes Subjective Patient reports: Present: no new complaints, feels better, tolerating a regular diet, afebrile Exam - Constitutional Vitals: Period Temp Pulse Resp BP Sys/Blood Pulse Ox Last 24 Hr 96.9 F-98.4 F 58-68 18-20 117-154/50-70 96-99 General appearance: no acute distress, morbidly obese - Head Head exam: Present: normal inspection, normocephalic - Eye Eye exam: Present: EOMI Pupils: Present: UDAY - ENT ENT exam: Present: normal exam Mouth exam: Present: normal external inspection, normal voice - Neck Neck exam: Present: normal inspection, trachea midline - Respiratory Respiratory exam: Present: clear to auscultation bilaterally. Absent: accessory muscle use, chest wall tenderness - Cardiovascular Cardiovascular exam: Present: RRR. Absent: systolic murmur, tachycardia - GI/Abdominal GI/Abdominal exam: Present: soft, other (Cholecystostomy tube is draining appropriately.). Absent: tenderness, rebound - Extremities Exam Extremities exam: Present: normal inspection, normal capillary refill - Back Exam Back exam: Present: normal inspection - Neurological Exam Neurological exam: Present: alert, oriented X3 Speech: Present: normal - Skin Skin exam: Present: normal color, warm Results - Labs CBC & BMP: 02/12/17 05:17 02/12/17 05:17 Quality Measures - Stroke Symptom Onset Unknown: No Specialty Discharge - Follow Up or Referrals Follow up with: Brando Ramos MD [Physician] - 1 Month (With EKG FLP CMP CBC)
--- NOTE | 2017-02-12 12:10 | Gastrointestinal Progress Note ---
<Sridhar Wellerher Jessica - Last Filed: 02/12/17 12:08> Assessment and Plan (1) Abdominal pain Status: Acute Assessment and plan: 02/12-no reports of abdominal pain, nausea or vomiting. Percutaneous cholecystostomy drain patent with moderate drainage. Afebrile. LFTs to normal range. Plan an addendum to follow by Dr. Mills. 02/09-For percuntaneous cholecystostomy tube today. Afebrile. LFTs continue to trend down. Plan and addendum to follow by Dr Mills. 02/08-ERCP canceled today due to cardiac reasons. LFTs are trending down. Patient noted to be running low-grade fever overnight. Continue to monitor. Plan an addendum to follow by Dr. Mills. 02/07-ERCP postponed due to hyponatremia. No abd pain at present time. Recheck sodium in the morning and proceed if improved. Plan and addendum to follow by Dr Mills. 02/06-sudden onset abdominal pain associated with nausea and vomiting. CT and HIDA scan results noted. Elevated liver enzymes. Plan for ERCP tomorrow to further evaluate. Plan an addendum to follow by Dr. Mills per Current Visit: Yes Gastroenterology - PN: Subj Interval history: CC: Abdominal pain Patient is seen awake and alert with daughter at bedside. Patient denies any abdominal pain at this time. Denies any nausea or vomiting. She is tolerating her diet well and denies pain associated with this. Cholecystostomy drain is patent with small to moderate output noted. Patient is afebrile. Abdomen is soft, nontender. Her LFTs are noted to be trending downward with just a mildly elevated alkaline phosphatase. Creatinine is down slightly at 5.5. ROS: Denies shortness of breath or chest pain Exam (Progress Note) - Constitutional Vitals: Period Temp Pulse Resp BP Sys/Blood Pulse Ox Last 24 Hr 96.9 F-98.4 F 58-68 18-20 117-154/50-70 96-99 General appearance: normal weight, no acute distress - Head Head exam: Present: normal inspection, normocephalic - Eye Eye exam: Present: other (Lids and conjunctive are unremarkable). Absent: scleral icterus - ENT ENT exam: Present: normal exam, normal oropharynx - Neck Neck exam: Present: normal inspection - Respiratory Respiratory exam: Present: clear to auscultation bilaterally. Absent: rales, rhonchi, wheezes - Cardiovascular Cardiovascular exam: Present: regular rate and rhythm. Absent: diastolic murmur , JVD, systolic murmur - GI/Abdominal GI/Abdominal exam: Present: normal bowel sounds, soft. Absent: ascites, distended, mass, organomegaly, tenderness - Extremities Exam Extremities exam: Present: normal inspection, full ROM - Back Exam Back exam: Present: normal inspection - Neurological Exam Neurological exam: Present: alert, oriented X3 - Psychiatric Psychiatric exam: Present: normal affect, normal mood - Skin Skin exam: Present: normal color, warm, dry Results - Labs CBC & BMP: 02/12/17 05:17 02/12/17 05:17 Lab Results: I have reviewed the past 24 hour labs Specialty Discharge - Follow Up or Referrals Follow up with: Brando Ramos MD [Physician] - 1 Month (With EKG FLP CMP CBC) <Ventura Mills - Last Filed: 02/12/17 20:23> Exam (Progress Note) - Constitutional Vitals: Period Temp Pulse Resp BP Sys/Blood Pulse Ox Last 24 Hr 97.4 F-98.4 F 64-86 18-20 117-154/65-88 94-99 Results - Labs CBC & BMP: 02/12/17 05:17 02/12/17 05:17
--- NOTE | 2017-02-12 13:14 | Physician Query Form ---
CLICK EDIT DOCUMENT TO SELECT QUERY ANSWER --> OK --> SIGN Aury Wise RN, CCDS Certified Clinical Reinforcing Steel Machine Operator W) [phone] (f) [phone] [email or web address]: Make your selection(s) from the choices in EACH section by typing an "x" and enter comments in the comment section. Please use your independent medical judgment in providing your response. This request does not imply that any particular answer is desired or expected. CLINICAL INDICATORS: (Providers should not edit this section) The medical record indicates that the patient was admitted with acute cholecystitis, creatinine has increased from 2.30--3.40---3.70---3.60--5.50 and GFR of 23# that has decreased to 8#.---------Patient is being followed by Nephrology. Based on the above, could you clarify the appropriate diagnosis, if significant , that supports the above abnormalities and additional evaluation, monitoring, and/or treatment rendered: ( ) Renal Failure with ATN ( x) Renal Failure without ATN ( ) Other, please specify: ( ) Clinically unable to determine COMMENTS: Use of terms such as suspected, likely, or probable (associated with a specific diagnosis that is being evaluated, monitored, or treated as if it exists) are acceptable and can be restated in the discharge summary if not ruled out. MTDD
[2017-02-12] MEDS ORDERED: TUBERCULIN SKIN TEST 0.1 ML SYRINGE INTRADERM ONE (15:54)
[2017-02-12] MEDS ORDERED: SODIUM POLYSTYRENE SULFATE 15 GM/60 ML BOTTLE PO ONE (16:55)
--- NOTE | 2017-02-12 16:55 | Hospitalist Progress Note ---
Assessment and Plan (1) Cholelithiasis with acute cholecystitis with biliary obstruction Status: Acute Assessment and plan: Status post PERC drain by interventional radiology. Will stay in for 2 weeks. cont zosyn Current Visit: Yes (2) Diabetes mellitus type 2 with complications Status: Chronic Assessment and plan: Needs diabetic diet. Will need a low dose of Lantus at night Current Visit: Yes (3) Afib Status: Acute Assessment and plan: Continue metoprolol, no anticoagulation recommended at this time as cardiology does not feel that she has atrial fib but PACs versus wandering atrial pacer which is benign. They also believe that she does not have congestive heart failure. Current Visit: Yes (4) CKD (chronic kidney disease) Status: Chronic Assessment and plan: No real improvement with IV fluids. Current Visit: Yes Qualifiers: Chronic kidney disease stage: stage 4 (severe) Qualified Code(s): N18.4 - Chronic kidney disease, stage 4 (severe) (5) Hyponatremia Status: Acute Assessment and plan: Resolving. Will Hep-Lock fluids Current Visit: Yes (6) Fracture of metatarsal of left foot, closed Status: Acute Assessment and plan: Left healing small metatarsal fracture with left bimalleolar ankle fracture s/p ORIF no obvious new fracture patient okay to be mobilized with weightbearing as tolerated Current Visit: Yes (7) Hyperkalemia Status: Acute Assessment and plan: Kayexalate, BMP in a.m. Current Visit: Yes (8) Elevated transaminase level Status: Acute Assessment and plan: Improved after PERC drain Current Visit: Yes Hospitalist: Subjective Interval history: Kidney failure is more chronic than acute. PERC drain will stay in for approximately [address] Helton and I discussed the case. He is hoping that her kidney failure will get better prior to doing gallbladder removal. We will transfer her to [facility] for physical therapy and strengthening prior to going home. Exam - Constitutional Vitals: Period Temp Pulse Resp BP Sys/Blood Pulse Ox Last 24 Hr 97.4 F-98.4 F 61-86 18-20 117-154/50-88 94-99 Exam: Heart Rate-[RRR] Lungs-[CTAB but diminished] GI-[+bs soft, NT, obese] Ext-[chronic lymphedema due to obesity] Neuro [Motor 4/5], [alert and oriented times 2] psych [pleasant mood and affect] General [no acute distress] Results - Labs CBC & BMP: 02/12/17 05:17 02/12/17 05:17 Lab Results: I have reviewed the past 24 hour labs - Diagnostic Findings Procedure: Ultrasound: report reviewed by me (Small chronic-looking kidney disease) Quality Measures - Stroke Symptom Onset Unknown: No Specialty Discharge - Follow Up or Referrals Follow up with: Brando Ramos MD [Physician] - 1 Month (With EKG FLP CMP CBC)
[2017-02-12] MEDS: MORPHINE 2 MG/1 ML SYRINGE IV PRN ×2 (17:25→21:41)
[2017-02-12] MEDS ORDERED: INSULIN GLARGINE 100 UNIT/ML SUBCUT SCH (21:00)
[2017-02-12] MEDS: SIMVASTATIN 80 MG TABLET PO SCH (21:16)
[2017-02-12] MEDS: SODIUM CHLORIDE 0.45% 1,000 ML IV SCH (23:19)
[2017-02-13] MEDS: PIPERACILLIN/TAZOBACTAM 3,375 MG in SODIUM CHLORIDE 0.9% 100 ML IV SCH (06:03)
[2017-02-13] MEDS: LEVOTHYROXINE 50 MCG TABLET PO SCH (06:04)
[2017-02-13 07:02] LABS: Osmolality,Calculated 300.1 MOS/KG (273-304); Potassium 4.4 MMOL/L (3.5-5.1)
--- NOTE | 2017-02-13 08:11 | Discharge Summary ---
<Fortino Ballard - Last Filed: 02/13/17 09:10> Hospital Course - Hospital Course Hospital Course: Ms. Lopez is a 82 year old female with a hx of kindey disease, hf, recurrent falls, and dm who was admitted on 02/06 for onset of abdominal pain, nausea vomiting. Pt presented to the ED as a transfer from [facility]. The patient was a fairly poor historian and family had to assist with some in her history. Information also obtained from chart review. Patient reportedly began to have had a sudden onset over the weekend of upper abdominal pain with nausea vomiting. Patient initially felt like something was caught in her throat when she began vomiting. Pt. also had pain in her upper abdomen that radiated across and into her back. The pt was found to have elevated LFT and a noncontrasted CT showed distended gallbladder with cholelithiasis. Pt. also had a fracture to her left metarsal area due to recurrent falls. She was then sent over to our ED. She was admitted to our service for eval and treatment. She was started with IVFs. She had a HIDA scan which showed a nonvisualized gallbladder. GI was consulted to assist with her care. The patient was scheduled to have an ERCP on 02/07 to further evaluate her cholelithiasis but pt went into afib with RVR so the procedure was cancelled. Pt. was also discovered to have a low sodium level. Cardiology was consulted to evaluate patient on 02/07. Cardiology did not think patient was in afib but that patient but 'PACs versus wandering atrial pacer'. During the patient's stay, she also say a rise in her creatinine from 2.3 to 3.4. A renal US was performed but showed no blockage. Nephrology was consulted to evaluate. 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 With IVF , chronic use has not significantly improved but is lowering consistently. Ortho saw pt for left metarasal fracture and recommended fracture shoe for that extremity. Surgery was also consulted to see and a percutaneous drain was placed. Drain has been patent and pt has not had any complaints. Pt. was also managed for dm with insulin. There have been no other issues during stay. Today the patient is stable and ready for discharge. Pt is to follow up with Rachel in 1 month (EKG, FLP, CMP, CBC) and Dr. Helton in 2 weeks. MD to follow. Specialty Discharge - Follow Up or Referrals Follow up with: Adolfo Helton MD [Physician] - 2 Weeks Brando Ramos MD [Physician] - 1 Month (With EKG FLP CMP CBC) Discharge Plan - Discharge Data Disposition: Disch/Xfer-Ip Rehab Fac - Discharge Medications New Ciprofloxacin HCl [Ciprofloxacin Tab] 500 mg PO BID #14 tablet Docusate Sodium Cap [Colace Cap] 100 mg PO BID capsule Heparin Inj 5,000 unit SUBCUT Q12H vial Insulin Glargine [Lantus] 5 unit SUBCUT BEDTIME unit Metoprolol Succinate Xl [Toprol Xl] 25 mg PO DAILY tablet Nystatin Powder [Mycostatin Powder] 1 applic TOP TID applic Polyethylene Glycol Powder [Miralax] 17 gm PO DAILY Ursodiol [Actigall] 300 mg PO BID capsule Bisacodyl Tab [Dulcolax Tab] 10 mg PO DAILY PRN #0 tablet PRN Reason: Constipation Insulin Lispro [HumaLOG] See Protocol SUBCUT ACHS unit metroNIDAZOLE TAB [Flagyl Cap/Tab] 500 mg PO TID #21 tablet Continue Citalopram [CeleXA] 20 mg PO DAILY Multivit,Calc,Mins/Iron/Folic [Women's Daily Formula Caplet] 1 tablet PO DAILY Omeprazole 40 mg PO DAILY Aspirin 81 mg PO DAILY Levothyroxine Tab [Synthroid Tab] 50 mcg PO DAILY Gabapentin 300 mg PO TID Simvastatin 80 mg PO BEDTIME Discontinued Lisinopril 40 mg PO DAILY Bumetanide 1 mg PO DAILY Furosemide [Lasix] 20 mg PO DAILY Insulin NPH Hum/Reg Insulin Hm [NovoLIN 70/30] 16 units SUBCUT DIRECTED metOLazone [Zaroxolyn] 2.5 mg PO DIRECTED - Follow Up or Referral Follow Up: Adolfo Helton MD [Physician] - 2 Weeks Brando Ramos MD [Physician] - 1 Month (With EKG FLP CMP CBC) Dameon Young MD [Physician] - 2 Weeks - Forms/Instructions Exam - Constitutional Vitals: Period Temp Pulse Resp BP Sys/Blood Pulse Ox Last 24 Hr 97.6 F-98.7 F 74-86 16-20 122-157/59-88 92-96 Discharge Results Labs on day of discharge: Labs from last 24 hours 02/13/17 02/13/17 02/12/17 06:45 05:37 20:12 Sodium 135 L Potassium 4.4 Chloride 100 Carbon Dioxide 22 Anion Gap 17.4 H BUN 79 H Creatinine 4.60 H GFR Calculation 10 BUN/Creatinine Ratio 17.00 Glucose 217 H POC Glucose 210 H 268 H Calculated Osmolality 300.1 Calcium 8.0 L 02/12/17 02/12/17 02/12/17 17:15 16:58 10:35 Sodium Potassium Chloride Carbon Dioxide Anion Gap BUN Creatinine GFR Calculation BUN/Creatinine Ratio Glucose POC Glucose 328 H 284 H 241 H Calculated Osmolality Calcium DS: Provider Date of admission: 02/06/17 02:43 Primary care physician: . No PCP Attending physician on admission: Regina Harden MD Consults: 02/06/17 02:46 Consult to Physician [CONS] Routine Comment: On-call physician; cholelithiasis/transaminasemia Consulting Provider: [place] Consult to Specialist Group: Gastroenterology When should Consulting Provider be notified: In am Person Notified: EBONI Date Notified: 02/06/17 Time Notified: 07:39 02/06/17 04:17 Consult to Pastoral Services [CONS] Routine Comment: Pastoral Screen: Request Reliability Technologist Visit Pastoral Screen Source of Request: Patient Family 02/06/17 10:13 Consult to Physician [CONS] Routine Comment: broken foot Consulting Provider: Lucian Bhardwaj Jr. Consult to Specialist Group: Orthopedic When should Consulting Provider be notified: Now Person Notified: [email or web address] Date Notified: 02/06/17 Time Notified: 10:33 02/06/17 10:28 Consult to Physician [CONS] Routine Comment: abdominal pain, ?cholecystitis Consulting Provider: Adolfo Helton Consult to Specialist Group: Surgery When should Consulting Provider be notified: Now Person Notified: [email or web address] Date Notified: 02/06/17 Time Notified: 10:45 02/07/17 13:02 Consult to Physician [CONS] Routine Comment: Consulting Provider: Dameon Young Consult to Specialist Group: Nephrology When should Consulting Provider be notified: Now Consult Notification Comment: as evidence by reports. 02/07/17 13:04 Consult to Physician [CONS] Routine Comment: afib, h/o heart failure Consulting Provider: Cardiology - [facility] 02/08/17 16:19 Consult to Physical Therapy [CONS] Routine Reason for Physical Therapy: Evaluate and Treat Ambulation 02/08/17 17:12 Consult to Occupational Therapy [CONS] Routine Reason for Occupational Therapy: Evaluate and Treat 02/09/17 13:24 Consult to Occupational Therapy [CONS] Routine Reason for Occupational Therapy: Evaluate and Treat 02/10/17 11:38 Consult to Pharmacy [CONS] Routine Reason for Pharmacy Consult: Dose/Manage Antibiotics 02/10/17 12:14 Consult to Pharmacy [CONS] Routine Reason for Pharmacy Consult: Adjust Meds Renal Funct Discharging clinician: Fortino Ballard NP <Lucy Fraser - Last Filed: 02/13/17 09:58> Hospital Course - Hospital Course Hospital Course: Patient seen and examined. Hospital course reviewed and edited. Hospital course reviewed and edited. Spoke to Dr. Helton he recommends 1 week of Cipro and Flagyl p.o. He will follow-up with patient and remove the percutaneous drain after 2 weeks. If her kidney function is improved he will discuss surgery further with her daughter. She has been accepted to rehab today. Liver enzymes have improved after percutaneous drain. 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 (3) Afib Status: Acute (4) CKD (chronic kidney disease) Status: Chronic (5) Hyponatremia Status: Acute (6) Fracture of metatarsal of left foot, closed Status: Acute (7) Hyperkalemia Status: Acute (8) Elevated transaminase level Status: Acute Discharge Plan - Discharge Data Condition at Discharge: Stable Discharge Diet: diabetic diet Activity: resume usual activities as tolerated Hygiene: no restrictions Weight Bearing at Discharge: full weight bearing Exam - Constitutional General appearance: normal weight, no acute distress - Respiratory Respiratory exam: Present: clear to auscultation bilaterally. Absent: rhonchi, wheezes - Cardiovascular Cardiovascular exam: Present: regular rate and rhythm. Absent: systolic murmur - GI/Abdominal GI/Abdominal exam: Present: normal bowel sounds, soft. Absent: tenderness
--- NOTE | 2017-02-13 08:14 | Case Mgmt Physician Query Form ---
TB Signs and Symptoms Screening ([place]) INSTRUCTIONS: To be completed annually on residents/staff with a significant Tuberculin Skin Test (TST) upon admission/hire or a prior significant TST. To be completed on all staff at hire. Please respond to each listed symptom with an (X) in either the "YES" or "NO" box. Do you currently have any of the following symptoms: YES NO ( ) ( x) A cough If yes, is it: ( ) Productive ( ) Non- productive ( ) (x ) Hemoptysis (spitting up blood) ( ) (x ) Chest pains ( ) ( x) Weight Loss ( ) (x ) Fever ( ) (x ) Night Sweats ( x) ( ) Weakness ( ) ( x) Loss of Appetite ( ) (x ) Difficulty Breathing If you answered YES" to any of the above questions, how long have symptoms been present? Comments: TERRENCE
[2017-02-13] MEDS: MULTIVITAMIN (CENTRUM) TABLET PO SCH (08:32)
[2017-02-13] MEDS: NYSTATIN POWDER 15 GM BOTTLE TOP SCH (08:32)
[2017-02-13] MEDS: ASPIRIN CHEW 81 MG TABLET PO SCH (08:32)
[2017-02-13] MEDS: NYSTATIN 500,000 UNIT/5 ML UDCUP SWISH/SWAL SCH ×2 (08:32→11:17)
[2017-02-13] MEDS: PANTOPRAZOLE 40 MG VIAL IV SCH (08:32)
[2017-02-13] MEDS: METOPROLOL SUCCINATE XL 25 MG TABLET PO SCH (08:32)
[2017-02-13] MEDS: URSODIOL 300 MG CAPSULE PO SCH (08:32)
[2017-02-13] MEDS: DOCUSATE SODIUM 100 MG CAPSULE PO SCH (08:32)
[2017-02-13] MEDS: HEPARIN 5,000 UNIT/1 ML VIAL SUBCUT SCH (08:33)
--- NOTE | 2017-02-13 08:47 | Nephrology Progress Note ---
Nephrology - PN: Subj Interval history: Ms. Lopez is seen in follow-up of her acute renal failure. Her creatinine is falling and she is improving generally. Her creatinine is now 4.6 down from a peak of 5.7. Her chest is clear heart without rub or gallop overall she is improved no changes were made in her chronic medicines. She continues to drain bile from her gallbladder tube. Exam (PN)-Nephrology - Vital Signs Vital signs: Period Temp Pulse Resp BP Sys/Blood Pulse Ox Last 24 Hr 97.6 F-98.7 F 74-86 16-20 122-157/59-88 92-96 - Lab 02/12/17 05:17 02/13/17 05:37 Most recent lab results Calcium 8.0 MG/DL (8.5-10.1) L 02/13/17 05:37 Magnesium 2.6 MG/DL (1.8-2.4) H 02/12/17 05:17 Assessment and Plan (1) [id number] renal failure Status: Acute Current Visit: Yes Specialty Discharge - Follow Up or Referrals Follow up with: Brando Ramos MD [Physician] - 1 Month (With EKG FLP CMP CBC)
--- NOTE | 2017-02-13 09:17 | General Surgery Progress Note ---
Assessment and Plan (1) Abdominal pain Status: Acute Assessment and plan: Continue percutaneous drain Follow-up with me in 2 weeks after discharge. Current Visit: Yes Subjective Patient reports: Present: no new complaints, afebrile. Absent: nausea, vomiting Narrative: The patient has no complaints today. Her creatinine is downtrending. Exam - Constitutional Vitals: Period Temp Pulse Resp BP Sys/Blood Pulse Ox Last 24 Hr 97.6 F-98.7 F 74-86 16-20 122-157/59-88 92-96 General appearance: no acute distress, morbidly obese - Head Head exam: Present: normal inspection, normocephalic - Eye Eye exam: Present: EOMI Pupils: Present: UDAY - ENT ENT exam: Present: normal exam Mouth exam: Present: normal external inspection, normal voice - Neck Neck exam: Present: normal inspection, trachea midline - Respiratory Respiratory exam: Present: clear to auscultation bilaterally. Absent: accessory muscle use, chest wall tenderness - Cardiovascular Cardiovascular exam: Present: RRR. Absent: systolic murmur, tachycardia - GI/Abdominal GI/Abdominal exam: Present: soft, other (Pigtail catheter has bilious output.). Absent: tenderness, rebound - Extremities Exam Extremities exam: Present: normal inspection, normal capillary refill - Back Exam Back exam: Present: normal inspection - Neurological Exam Neurological exam: Present: alert, oriented X3 Speech: Present: normal - Skin Skin exam: Present: normal color, warm Results - Labs CBC & BMP: 02/12/17 05:17 02/13/17 05:37 Quality Measures - Stroke Symptom Onset Unknown: No Specialty Discharge - Follow Up or Referrals Follow up with: Brando Ramos MD [Physician] - 1 Month (With EKG FLP CMP CBC) Adolfo Helton MD [Physician] - 2 Weeks
[2017-02-13] MEDS: INSULIN LISPRO 100 UNIT/ML SUBCUT SCH ×2 (09:37→11:06)
[2017-02-13] MEDS: SORBITOL 30 ML BOTTLE PO SCH (09:39)
[2017-02-13] MEDS ORDERED: POLYETHYLENE GLYCOL POWDER 17 GM PACK PO SCH (10:00)
[2017-02-13 11:25] VITALS: BP 126/78
== END 2017-02-13 11:50 | DRG 445 ==
LOC: N.ED 01:03 → SUATTDRO 02:43 → N.EDINP 02:43 → N.2E 03:29
PROVIDERS: ADMIT Internal Medicine; ATTEND Internal Medicine